=== PATIENT | female | born 1960 | race Caucasian/White ===

== ENCOUNTER 2017-11-06 09:00 | Outpatient (RCR) | payer MEDICARE, MEDICAID, SELFPAY ==
[2017-10-30 10:01] VITALS: BP 150/87; PULSE 99; RESP 16; TEMP 36.3; BMI 53.2
--- NOTE | 2017-10-30 12:18 | HP.PCM_ITS ---
(1) Radiation adverse effect Status: Chronic Current Visit: Yes Code(s): T66.XXXA - Radiation sickness, unspecified, initial encounter (2) Endometrial cancer Status: Chronic Current Visit: No Code(s): C54.1 - Malignant neoplasm of endometrium (3) Lung cancer Status: Chronic Current Visit: Yes Code(s): C34.90 - Malignant neoplasm of unspecified part of unspecified bronchus or lung (4) Neuropathy involving both lower extremities Status: Chronic Current Visit: Yes Code(s): G57.93 - Unspecified mononeuropathy of bilateral lower limbs (5) Ulcer of left lower extremity Status: Acute Current Visit: Yes Code(s): L97.929 - Non-pressure chronic ulcer of unspecified part of left lower leg with unspecified severity (6) Infection, wound status post trauma Status: Acute Current Visit: Yes Code(s): T14.8XXA - Other injury of unspecified body region, initial encounter; L08.9 - Local infection of the skin and subcutaneous tissue, unspecified (7) Cellulitis of left lower leg Status: Acute Current Visit: Yes Code(s): L03.116 - Cellulitis of left lower limb History of Present Illness Date of Service: 10/30/17 Chief Complaint: Follow-up on a ulcer from September 30 left lower leg History of Wound: 57-year-old white female that was working with a microwave and jumped a boiling bag on her left lower leg and developed a burn that blistered to a second-degree. Patient suffers from neuropathy from radiation treatments for her ovarian lung cancer 5 years ago. Patient has no feeling in her lower extremities therefore did not realize it was getting worse. Patient finally went to the emergency room where they placed her on antibiotics. She has also been seen by her primary care doctor and they also put her on a second antibiotic. Patient is currently finished Bactrim and now cephalexin. The ulcer is on the left lateral lower leg with a not a healthy scab and cellulitis around the leg she denies pain. Past Medical History Past Medical History: Chronic Problems Benign hypertension (Chronic) Calculus of kidney and ureter (Chronic) Chronic osteoarthritis (Chronic) Complicated migraine (Chronic) Constipation (Chronic) Hyperlipidemia (Chronic) Morbid obesity (Chronic) Psoriasis (Chronic) Endometrial cancer (Chronic) Esophageal reflux (Chronic) Radiation adverse effect (Chronic) Lung cancer (Chronic) Neuropathy involving both lower extremities (Chronic) Past Medical History: Radiation adverse reaction from ovarian and lung cancer stage IV and remission infection in a left lower leg ulcer, burn to her left lower leg Allergies/Adverse Reactions: Allergies Iodinated Contrast- Oral and IV Dye [CONTRASTS] Adverse Reaction (Verified 10/25 15:29) Swelling SEASONAL ALLERGIES Adverse Reaction (Uncoded 10/25/17 15:29) Other Home Medications: Ambulatory Orders Medication Instructions Recorded Dicyclomine HCl 10 mg PO 4X/DAY 02/10/15 Gabapentin [Neurontin] 600 mg PO BID 02/10/15 Hydrochlorothiazide [Hctz] 10 mg PO DAILY 02/10/15 Albuterol Inhaler [Ventolin Hfa 1 - 2 puff INHALATION Q4H PRN PRN 12/24/16 (SP)] Apremilast [Otezla] 30 mg PO BID 12/24/16 Gabapentin [Neurontin] 900 mg PO QHS 03/25/17 Cephalexin [Keflex] 500 mg PO TID 10/25/17 Sulfamethoxazole/Trimethoprim 1 each PO BID 10/25/17 [Bactrim Ds Tablet] Smoking Status: Former smoker Review of Systems Constitutional: Denies: Chills, Fever Eyes: Denies: Blurred vision, Drainage, Pain HEENT: Denies: Difficulty Hearing, Difficulty Swallowing, Sore Throat, Visual Changes Cardiovascular: Denies: Chest Pain, Palpitations, Syncope Respiratory: Denies: Cough, Shortness of Breath Gastrointestinal: Denies: Abdominal Pain, Nausea, Vomiting Genitourinary: Denies: Dysuria, Frequency Musculoskeletal: Denies: Joint Pain, Muscle pain Skin: Reports: - - Left lower leg ulcer. Denies: Jaundice, Rash Neurological: Denies: Balance problems, Change in Speech, Difficulty swallowing , Focal weakness Psychiatric: Denies: Anxiety, Depression Endocrine: Denies: Change in Body Habitus Hematologic/ Lymphatic: Denies: Adenopathy - Physical Exam Vital Signs Temp Pulse Resp BP 97.3 F L 99 16 150/87 H 10/30/17 10:01 10/30/17 10:01 10/30/17 10:01 10/30/17 10:01 General: Oriented x3, Cooperative, Well developed HEENT: Atraumatic, PERRLA Oral: Moist Mucosa Neck: Supple, No JVD Lungs: Clear to auscultation, Normal air movement Cardiovascular: Regular rate, Regular Rhythm Abdomen: Bowel Sounds Present, Soft, Non Tender, No Hepato-splenomegaly, Obese Extremities: No clubbing, No edema, - - Ulcer left lower leg scabbed Wound Measurements and Assessment - Nurse 1 - General Ulcer Measurement Start: 10/30/17 09:54 Freq: Status: Active Protocol: Activity Type Activity Date Activity User E-Sign Co-Sign Detail Recorded Client Recorded Date Recorded By Document 10/30/17 10:01 BM [id number] 10/30/17 10:22 BMF 10/30/17 10:01 Wound Center Nurse 1 [Ulcer Assessment Protocol: PATRICIA.WD.LOC] #1- LT LOWER REED -Combined with other wound No -Current Size (cm) - Length 1.6 -Current Size (cm) - Width 1.2 -Current Size (cm) - Depth 0.1 -Total Square Cm 1.92 -Date of Last Picture (Recall this 10/30/17 field) -Photo Taken Yes -Epithelialization None Present -Tunneling No -Undermining/Tunneling No -Exudate Amt None Present (0 %) -Wound Margin Distinct, Outline Attached -Granulation Amt None Present (0 %) -Slough/Fibrin Yes -Necrosis Amt Large (67-100%) -Necrotic Tissue Type Eschar -Structure Exposed N/A -Texture (Mady-wound Skin Appearance) Scarring -Moisture (Mady-wound Skin Appearance Assessed ) -Color (Mady-wound Skin Appearance) Erythema -Temperature (Mady-wound Skin No Abnormality Appearance) (Pt Warm) -Tenderness on Palpation (Mady-wound No Skin Appearance) -Ulcer Cleansing Rinsed/ Irrigated with Saline -Foul Odor after Cleansing No -Anesthetic Used 5% Lidocaine Gel [Edema Assessment] -Lower Limb Edema Present Yes -Right Calf (cm) 57 -Right Ankle (cm) 32.6 -Left Calf (cm) 57.5 -Left Ankle (cm) 35.4 - Nurse 2 - General Ulcer CM Notes Start: 10/30/17 09:54 Freq: Status: Active Protocol: Activity Type Activity Date Activity User E-Sign Co-Sign Detail Recorded Client Recorded Date Recorded By Document 10/30/17 10:37 MW [id number] 10/30/17 10:47 MW 10/30/17 10:37 Wound Center Nurse 2 [Procedure/Treatment] #1- LT LOWER REED -Time 10:39 -Correct Patient Yes -Correct Side, Site, Position Yes -Correct Procedure Yes -Procedure Performed Yes -Type of Procedure Debridement -Clinical Debridement Subcutaneous -Post Debridement Size (cm) - Length 1.5 -Post Debridement Size (cm) - Width 1.0 -Post Debridement Size (cm) - Depth 0.2 -Total Square Cm 1.50 -Wound/Ulcer Outcome Not Healed -Ulcer Cleansing Rinsed/ Irrigated with Saline -Foul Odor after Cleansing No -Cetacaine [place] No -Bleeding Controlled with Pressure -Treatment Response Procedure Tolerated Well [See Physician Procedure note for Specifics] Pain Scale: 0-10 Numeric [Pain] -Is Patient Pain Free? Yes Musculoskeletal: No Tenderness to Palpation of Joints or Extremities Lymphatic: No Cervical, Supraclavicular, or Inguinal Adenopathy Neurological: Cranial nerves II-XII grossly intact, Neuro grossly intact Psych/Mental Status: Normal Affect, Appropriate, Alert and oriented to time, place, person, mood and affect Debridement Note Post-Debridement Measurements/Treatment WC - Nurse 2 - General Ulcer CM Notes Start: 10/30/17 09:54 Freq: Status: Active Protocol: Activity Type Activity Date Activity User E-Sign Co-Sign Detail Recorded Client Recorded Date Recorded By Document 10/30/17 10:37 MW [id number] 10/30/17 10:47 MW 10/30/17 10:37 Wound Center Nurse 2 #1- LT LOWER REED -Time 10:39 -Correct Patient Yes -Correct Side, Site, Position Yes -Correct Procedure Yes -Procedure Performed Yes -Type of Procedure Debridement -Clinical Debridement Subcutaneous -Post Debridement Size (cm) - Length 1.5 -Post Debridement Size (cm) - Width 1.0 -Post Debridement Size (cm) - Depth 0.2 -Total Square Cm 1.50 -Wound/Ulcer Outcome Not Healed -Ulcer Cleansing Rinsed/ Irrigated with Saline -Foul Odor after Cleansing No -Cetacaine [place] No -Bleeding Controlled with Pressure -Treatment Response Procedure Tolerated Well Pain Scale: 0-10 Numeric Is Patient Pain Free? Yes Wound debrided: Left lower leg ulcer Type of Debridement: Excisional debridement Anesthesia Used: 5% Lidocaine Gel Depth: Down to and including healthy tissue, in the subcutaneous layer, to muscle Percentage of wound debrided: 100 Instrument Used: 5mm curette, #15 blade Tissue Removed: Slough and devitalized tissue Severity: Limited To Skin Breakdown Amount of bleeding with debridement: Mild Bleeding Controlled with: Compression and gauze Patient tolerated procedure well Assessment/Plan Active Problems Radiation adverse effect (Chronic) Lung cancer (Chronic) Neuropathy involving both lower extremities (Chronic) Ulcer of left lower extremity (Acute) Infection, wound status post trauma (Acute) Cellulitis of left lower leg (Acute) Assessment: Left lobe lower leg ulcer infected. Nonhealing ulcer from a burn September 30. Radiation yin to her lower abdomen and back. Cellulitis of the left lower leg. Edema bilateral lower legs. Neuropathy bilateral lower legs Plan: Wash the left lower leg with Hibiclens. Apply Promogran moistened Adaptic dressings every other day. Tubigrip's bilateral lower legs. Follow-up in 1 week
[2017-11-06 08:52] VITALS: BP 152/83; PULSE 88; RESP 18; TEMP 35.5; BMI 53.2
--- NOTE | 2017-11-06 09:38 | PN.PCM_ITS ---
(1) Radiation adverse effect Status: Chronic Current Visit: Yes Code(s): T66.XXXA - Radiation sickness, unspecified, initial encounter (2) Endometrial cancer Status: Chronic Current Visit: Yes Code(s): C54.1 - Malignant neoplasm of endometrium (3) Lung cancer Status: Chronic Current Visit: Yes Code(s): C34.90 - Malignant neoplasm of unspecified part of unspecified bronchus or lung (4) Neuropathy involving both lower extremities Status: Chronic Current Visit: Yes Code(s): G57.93 - Unspecified mononeuropathy of bilateral lower limbs (5) Ulcer of left lower extremity Status: Acute Current Visit: Yes Code(s): L97.929 - Non-pressure chronic ulcer of unspecified part of left lower leg with unspecified severity (6) Infection, wound status post trauma Status: Acute Current Visit: Yes Code(s): T14.8XXA - Other injury of unspecified body region, initial encounter; L08.9 - Local infection of the skin and subcutaneous tissue, unspecified (7) Cellulitis of left lower leg Status: Acute Current Visit: Yes Code(s): L03.116 - Cellulitis of left lower limb (8) Lymphedema Status: Acute Current Visit: Yes Code(s): I89.0 - Lymphedema, not elsewhere classified Type of Wound Date of Service: 11/06/17 Chief Complaint: Follow-up on a ulcer from September 30 left lower leg History of Wound: 57-year-old white female that was working with a microwave and dropped a boiling bag on her left lower leg and developed a burn that blistered to a second-degree. Patient suffers from neuropathy from radiation treatments for her ovarian lung cancer 5 years ago. Patient has no feeling in her lower extremities therefore did not realize it was getting worse. Patient finally went to the emergency room where they placed her on antibiotics. She has also been seen by her primary care doctor and they also put her on a second antibiotic. Patient is currently finished Bactrim and now cephalexin. The ulcer is on the left lateral lower leg with a not a healthy scab and cellulitis around the leg she denies pain. Progress of Wound: Today the ulcer is slightly smaller the swelling is better she is down 3 inches in her legs just with the Tubigrip's. She states she still complains of a severe deep pain inside her leg. There is a red line circumferential to the ulcer. I think I will start her on metronidazole to see if there was an culture that just did not catch her anaerobes. Cultures did come back negative for any bacteria. We will also in discussion with her swelling she complains that her right thigh overlaps her knee even at sitting and did not know that I she had lymphedema so we will get arterial brachial studies and suggest may be done wraps for her to send her down and she would be a good candidate for the automatic compression machine for herself to. - Physical Exam Vital Signs Temp Pulse Resp BP 95.9 F L 88 18 152/83 H 11/06/17 08:52 11/06/17 08:52 11/06/17 08:52 11/06/17 08:52 General: Oriented x3, Cooperative, Well developed HEENT: Atraumatic, PERRLA Oral: Moist Mucosa Neck: Supple, No JVD Lungs: Clear to auscultation, Normal air movement Cardiovascular: Regular rate, Regular Rhythm Abdomen: Bowel Sounds Present, Soft, Non Tender, No Hepato-splenomegaly Extremities: No clubbing, No edema, - - Left lower leg ulcer Skin: Ulcer/ Wound Wound Measurements and Assessment - Nurse 1 - General Ulcer Measurement Start: 10/30/17 09:54 Freq: Status: Active Protocol: Activity Type Activity Date Activity User E-Sign Co-Sign Detail Recorded Client Recorded Date Recorded By Document 11/06/17 08:52 [id number] 11/06/17 09:01 DL 11/06/17 08:52 Wound Center Nurse 1 [Ulcer Assessment Protocol: PATRICIA.WD.LOC] #1- LT LOWER REED -Current Size (cm) - Length 1.3 -Current Size (cm) - Width 0.4 -Current Size (cm) - Depth 0.1 -Total Square Cm 0.52 -Photo Taken No -Exudate Amt Small (1-33%) -Exudate Type Serosanguineous -Wound Margin Distinct, Outline Attached -Granulation Amt Medium (34-66%) -Granulation Quality Red -Necrosis Amt Medium (34-66%) -Necrotic Tissue Type Adherent Slough -Structure Exposed N/A -Texture (Mady-wound Skin Appearance) Scarring -Moisture (Mady-wound Skin Appearance Dry/Scaly ) -Color (Mady-wound Skin Appearance) No Abnormality Rubor -Temperature (Mady-wound Skin No Abnormality Appearance) (Pt Warm) -Ulcer Cleansing Rinsed/ Irrigated with Saline -Foul Odor after Cleansing No -Anesthetic Used 4% Lidocaine Solution [Edema Assessment] -Right Calf (cm) 54.2 -Right Ankle (cm) 32.2 -Right Foot (cm) 54.5 -Left Calf (cm) 3 WC - Nurse 2 - General Ulcer CM Notes Start: 10/30/17 09:54 Freq: Status: Active Protocol: Activity Type Activity Date Activity User E-Sign Co-Sign Detail Recorded Client Recorded Date Recorded By Document 11/06/17 09:18 MW [id number] 11/06/17 09:21 MW 11/06/17 09:18 Wound Center Nurse 2 [Procedure/Treatment] #1- LT LOWER REED -Time 09:19 -Correct Patient Yes -Correct Side, Site, Position Yes -Correct Procedure Yes -Procedure Performed Yes -Type of Procedure Debridement -Clinical Debridement Subcutaneous -Post Debridement Size (cm) - Length 1.5 -Post Debridement Size (cm) - Width 0.5 -Post Debridement Size (cm) - Depth 0.1 -Total Square Cm 0.75 -Wound/Ulcer Outcome Not Healed -Ulcer Cleansing Rinsed/ Irrigated with Saline -Foul Odor after Cleansing No -Bioengineered Tissue No -Cetacaine [place] No -Bleeding Controlled with Pressure -Treatment Response Procedure Tolerated Well [See Physician Procedure note for Specifics] Pain Scale: 0-10 Numeric [Pain] -Is Patient Pain Free? Yes Musculoskeletal: No Tenderness to Palpation of Joints or Extremities Lymphatic: No Cervical, Supraclavicular, or Inguinal Adenopathy Neurological: Cranial nerves II-XII grossly intact, Neuro grossly intact Psych/Mental Status: Normal Affect, Appropriate, Alert and oriented to time, place, person, mood and affect Debridement Note Post-Debridement Measurements/Treatment WC - Nurse 2 - General Ulcer CM Notes Start: 10/30/17 09:54 Freq: Status: Active Protocol: Activity Type Activity Date Activity User E-Sign Co-Sign Detail Recorded Client Recorded Date Recorded By Document 10/30/17 10:37 MW [id number] 10/30/17 10:47 MW Document 11/06/17 09:18 MW [id number] 11/06/17 09:21 MW 10/30/17 11/06/17 10:37 09:18 Wound Center Nurse 2 #1- LT LOWER REED -Time 10:39 09:19 -Correct Patient Yes Yes -Correct Side, Site, Position Yes Yes -Correct Procedure Yes Yes -Procedure Performed Yes Yes -Type of Procedure Debridement Debridement -Clinical Debridement Subcutaneous Subcutaneous -Post Debridement Size (cm) - Length 1.5 1.5 -Post Debridement Size (cm) - Width 1.0 0.5 -Post Debridement Size (cm) - Depth 0.2 0.1 -Total Square Cm 1.50 0.75 -Wound/Ulcer Outcome Not Healed Not Healed -Ulcer Cleansing Rinsed/ Rinsed/ Irrigated with Irrigated with Saline Saline -Foul Odor after Cleansing No No -Bioengineered Tissue No -Cetacaine [place] No No -Bleeding Controlled with Pressure Pressure -Treatment Response Procedure Procedure Tolerated Well Tolerated Well Pain Scale: 0-10 Numeric Is Patient Pain Free? Yes Yes Wound debrided: Left lower leg ulcer Type of Debridement: Excisional debridement Anesthesia Used: 5% Lidocaine Gel Depth: Down to and including healthy tissue, in the subcutaneous layer, to muscle Percentage of wound debrided: 100 Instrument Used: 5mm curette Tissue Removed: Devitalized tissue and slough Severity: Limited To Skin Breakdown Amount of bleeding with debridement: Mild Bleeding Controlled with: Compression and gauze Patient tolerated procedure well Assessment/Plan Active Problems Endometrial cancer (Chronic) Radiation adverse effect (Chronic) Lung cancer (Chronic) Neuropathy involving both lower extremities (Chronic) Ulcer of left lower extremity (Acute) Infection, wound status post trauma (Acute) Cellulitis of left lower leg (Acute) Lymphedema (Acute) Assessment: Left lobe lower leg ulcer infected. Nonhealing ulcer from a burn September 30. Radiation yin to her lower abdomen and back. Cellulitis of the left lower leg. Edema bilateral lower legs. Neuropathy bilateral lower legs Plan: Wash the left lower leg with Hibiclens. Apply Promogran moistened Adaptic dressings every other day. Tubigrip's bilateral lower legs. Follow-up in 1 week
== END 2017-11-11 23:59 ==
LOC: WC 09:00
PROVIDERS: Family Provider Internal Medicine; PCP Internal Medicine; Visit Provider Nurse Practitioner
DX: T66.XXXA Radiation sickness, unspecified, initial encounter (principal); C54.1 Malignant neoplasm of endometrium; C34.90 Malignant neoplasm of unspecified part of unspecified bronchus or lung; G57.93 Unspecified mononeuropathy of bilateral lower limbs; L03.116 Cellulitis of left lower limb; I89.0 Lymphedema, not elsewhere classified; L97.821 Non-pressure chronic ulcer of other part of left lower leg limited to breakdown of skin; R60.0 Localized edema
CPT/HCPCS: 11042; 87070; 87075; 87205; 99203; G0463

== ENCOUNTER 2017-11-27 09:00 | Outpatient (RCR) | payer MEDICARE, BC, MEDICAID, SELFPAY ==
[2017-11-06 08:52] VITALS: BP 152/83
[2017-11-12 01:14] VITALS: PULSE 88; RESP 18; TEMP 35.5
[2017-11-13 09:08] VITALS: BP 142/82; PULSE 68; RESP 18; TEMP 36.3; BMI 53.2
--- NOTE | 2017-11-13 11:36 | PN.PCM_ITS ---
(1) Cellulitis of left lower leg Status: Acute Current Visit: Yes Code(s): L03.116 - Cellulitis of left lower limb (2) Infection, wound status post trauma Status: Acute Current Visit: Yes Code(s): T14.8XXA - Other injury of unspecified body region, initial encounter; L08.9 - Local infection of the skin and subcutaneous tissue, unspecified (3) Lymphedema Status: Chronic Current Visit: Yes Code(s): I89.0 - Lymphedema, not elsewhere classified (4) Ulcer of left lower extremity Status: Acute Current Visit: Yes Code(s): L97.929 - Non-pressure chronic ulcer of unspecified part of left lower leg with unspecified severity Type of Wound Date of Service: 11/13/17 Chief Complaint: Follow-up on a ulcer from September 30 left lower leg History of Wound: 57-year-old white female that was working with a microwave and dropped a boiling bag on her left lower leg and developed a burn that blistered to a second-degree. Patient suffers from neuropathy from radiation treatments for her ovarian lung cancer 5 years ago. Patient has no feeling in her lower extremities therefore did not realize it was getting worse. Patient finally went to the emergency room where they placed her on antibiotics. She has also been seen by her primary care doctor and they also put her on a second antibiotic. Patient is currently finished Bactrim and now cephalexin. The ulcer is on the left lateral lower leg with a not a healthy scab and cellulitis around the leg she denies pain. Progress of Wound: Today the ulcer is slightly smaller the swelling is better she is down 3 inches in her legs just with the Tubigrip's. She states the pain in her left lower leg has been better since being on the metronidazole. Cultures came back negative for any growth of anaerobes and her leg. There is a red line circumferential to the ulcer that is disappearing. Cultures did come back negative for any bacteria. We will also in discussion with her swelling she complains that her right thigh overlaps her knee even at sitting and did not know that I she had lymphedema so we will get arterial brachial studies and suggest may be done wraps for her to send her down and she would be a good candidate for the automatic compression machine for herself to. - Physical Exam Vital Signs Temp Pulse Resp BP 97.3 F L 68 18 142/82 H 11/13/17 09:08 11/13/17 09:08 11/13/17 09:08 11/13/17 09:08 General: Oriented x3, Cooperative, Well developed HEENT: Atraumatic, PERRLA Oral: Moist Mucosa Neck: Supple, No JVD Lungs: Clear to auscultation, Normal air movement Cardiovascular: Regular rate, Regular Rhythm Abdomen: Bowel Sounds Present, Soft, Non Tender, No Hepato-splenomegaly Extremities: No clubbing, No edema, - - Left lower leg Skin: Ulcer/ Wound Wound Measurements and Assessment - Nurse 1 - General Ulcer Measurement Start: 11/13/17 08:49 Freq: Status: Active Protocol: Activity Type Activity Date Activity User E-Sign Co-Sign Detail Recorded Client Recorded Date Recorded By Document 11/13/17 09:08 DV [id number] 11/13/17 09:11 DV 11/13/17 09:08 Wound Center Nurse 1 [Ulcer Assessment Protocol: WC.WD.LOC] #1- LT LOWER REED -Combined with other wound No -Current Size (cm) - Length 1.1 -Current Size (cm) - Width 0.5 -Current Size (cm) - Depth 0.1 -Total Square Cm 0.55 -Photo Taken No -Epithelialization Small 1-33% -Tunneling No -Undermining/Tunneling No -Circular Undermining No -Exudate Amt Small (1-33%) -Exudate Type Serosanguineous -Wound Margin Distinct, Outline Attached -Granulation Amt None Present (0 %) -Granulation Quality N/A -Slough/Fibrin Yes -Necrosis Amt Large (67-100%) -Necrotic Tissue Type Adherent Slough -Structure Exposed None/Limited to Skin Breakdown -Texture (Mady-wound Skin Appearance) Assessed Scarring -Moisture (Mady-wound Skin Appearance No Abnormality ) Assessed -Color (Mady-wound Skin Appearance) Assessed Mottled -Temperature (Mady-wound Skin No Abnormality Appearance) (Pt Warm) -Tenderness on Palpation (Mady-wound No Skin Appearance) -Ulcer Cleansing Rinsed/ Irrigated with Saline -Foul Odor after Cleansing No -Anesthetic Used 4% Lidocaine Solution [Edema Assessment] -Lower Limb Edema Present Yes -Left Calf (cm) 54.0 -Left Ankle (cm) 33.8 - Nurse 2 - General Ulcer CM Notes Start: 11/13/17 08:49 Freq: Status: Active Protocol: Activity Type Activity Date Activity User E-Sign Co-Sign Detail Recorded Client Recorded Date Recorded By Document 11/13/17 10:07 MW [id number] 11/13/17 10:08 MW 11/13/17 10:07 Wound Center Nurse 2 [Procedure/Treatment] #1- LT LOWER REED -Time 10:07 -Correct Patient Yes -Correct Side, Site, Position Yes -Correct Procedure Yes -Procedure Performed Yes -Type of Procedure Debridement -Clinical Debridement Subcutaneous -Post Debridement Size (cm) - Length 1.4 -Post Debridement Size (cm) - Width 0.4 -Post Debridement Size (cm) - Depth 0.1 -Total Square Cm 0.56 -Wound/Ulcer Outcome Not Healed -Ulcer Cleansing Rinsed/ Irrigated with Saline -Foul Odor after Cleansing No -Bioengineered Tissue No -Cetacaine [place] No -Bleeding Controlled with Pressure -Treatment Response Procedure Tolerated Well [See Physician Procedure note for Specifics] Pain Scale: 0-10 Numeric [Pain] -Is Patient Pain Free? Yes Musculoskeletal: No Tenderness to Palpation of Joints or Extremities Lymphatic: No Cervical, Supraclavicular, or Inguinal Adenopathy Neurological: Cranial nerves II-XII grossly intact, Neuro grossly intact Psych/Mental Status: Normal Affect, Appropriate, Alert and oriented to time, place, person, mood and affect Debridement Note Post-Debridement Measurements/Treatment WC - Nurse 2 - General Ulcer CM Notes Start: 11/13/17 08:49 Freq: Status: Active Protocol: Activity Type Activity Date Activity User E-Sign Co-Sign Detail Recorded Client Recorded Date Recorded By Document 11/13/17 10:07 MW [id number] 11/13/17 10:08 MW 11/13/17 10:07 Wound Center Nurse 2 #1- LT LOWER REED -Time 10:07 -Correct Patient Yes -Correct Side, Site, Position Yes -Correct Procedure Yes -Procedure Performed Yes -Type of Procedure Debridement -Clinical Debridement Subcutaneous -Post Debridement Size (cm) - Length 1.4 -Post Debridement Size (cm) - Width 0.4 -Post Debridement Size (cm) - Depth 0.1 -Total Square Cm 0.56 -Wound/Ulcer Outcome Not Healed -Ulcer Cleansing Rinsed/ Irrigated with Saline -Foul Odor after Cleansing No -Bioengineered Tissue No -Cetacaine [place] No -Bleeding Controlled with Pressure -Treatment Response Procedure Tolerated Well Pain Scale: 0-10 Numeric Is Patient Pain Free? Yes Wound debrided: Lower leg ulcer Type of Debridement: Excisional debridement Anesthesia Used: 5% Lidocaine Gel Depth: Down to and including healthy tissue, in the subcutaneous layer Instrument Used: 3mm curette Tissue Removed: Vitalized tissue and fibrin Severity: Limited To Skin Breakdown Amount of bleeding with debridement: Mild Bleeding Controlled with: Compression and gauze Patient tolerated procedure well Assessment/Plan Active Problems Ulcer of left lower extremity (Acute) Infection, wound status post trauma (Acute) Cellulitis of left lower leg (Acute) Lymphedema (Chronic) Assessment: Left lobe lower leg ulcer infected. Nonhealing ulcer from a burn September 30. Radiation yin to her lower abdomen and back. Cellulitis of the left lower leg. Edema bilateral lower legs. Neuropathy bilateral lower legs Plan: Wash the left lower leg with Hibiclens. Apply Promogran moistened Adaptic dressings every other day. Tubigrip's bilateral lower legs. Follow-up in 1 week
--- NOTE | 2017-11-17 08:43 | VDLE_ITS ---
Reason For Study: lymphedema RIGHT LEFT CFV is compressible, spontaneous, phasic, CFV is compressible, spontaneous, phasic, competent and demonstrates normal competent, and demonstrates normal augmentation. augmentation. FV is compressible, spontaneous, phasic, FV is compressible, spontaneous, phasic, competent and demonstrates normal competent and demonstrates normal augmentation. augmentation. POP V is compressible, spontaneous, phasic, POP V is compressible, spontaneous, phasic, competent and demonstrates normal competent and demonstrates normal augmentation. augmentation. T/P Trunk is compressible. T/P Trunk is compressible. PTV is compressible. PTV is compressible. RT PerV is compressible. LT PerV is compressible. S-F Junction is competent. S-F Junction is competent. GSV is incompetent throughout for greater GSV is incompetent throughout for greater than .5 seconds. GSV measures .529 x .520 than .5 seconds. GSV measures .622 x .621 cm. cm. ASV in the upper thigh is incompetent for SSV is incompetent for greater than .5 greater than .5 seconds. ASV measures .312 seconds. SSV measures .340 x .348 cm. x .327 cm. SSV is incompetent for greater than .5 seconds. SSV measures .530 x .543 cm. Procedure Exam performed in department. The exam was diagnostic. Interpretation Summary Deep veins of the lower extremities are bilaterally patent and compressible segmentally. There is no evidence of deep vein thrombosis on either side. Valvular competence appears intact within the proximal deep venous systems bilaterally. The greater saphenous veins appear bilaterally patent and compressible segmentally. Sapheno-femoral junctions are bilaterally competent . Segmental valvular incompetence is noted within the greater saphenous veins bilaterally. Small saphenous veins are patent and incompetent bilaterally. The right acessory saphenous vein in the upper thigh is incompetent. Ordering Physician: ORLANDO, OMAR Performed By: Merritt Hernandez RVT
--- NOTE | 2017-11-19 13:35 | LEAS ---
Arterial Study - Arterial Study Arterial Study: This is a 57-year-old female with a history of peripheral arterial occlusive disease. She is brought to the noninvasive vascular laboratory at this time for the purpose of bilateral noninvasive lower extremity arterial assessment. Doppler signal assessment was used to evaluate the pulses at ankle level bilaterally. The posterior tibial and dorsalis pedis pulses were triphasic bilaterally. Segmental limb pressures were obtained bilaterally. The right ankle pressure, as determined by posterior tibial pulse, was measured at 174 mmHg. The right ankle pressure, as determined by dorsalis pedis pulse, was measured at 154 mmHg. The right digital pressure was measured at 145 mm of the. The left ankle pressure, as determined by posterior tibial pulse, was measured at 159 mmHg. The left ankle pressure, as determined by dorsalis pedis pulse, was measured at 166 mmHg. The left digital pressure was measured at 116 mmHg. Pulse-volume recordings were obtained bilaterally and segmentally. Waveform amplitudes appeared to be satisfactory at all levels bilaterally, including low thigh, calf, ankle, and digital levels. Resting ankle-brachial indices were calculated bilaterally. The resting right ankle-brachial index was calculated to be 1.25. The resting left ankle-brachial index was calculated to be 1.19. Digital-brachial indices were calculated bilaterally. The right digital-brachial index was calculated to be 1.04. The left digital-brachial index was calculated to be 0.83. Impression: Based upon the findings of this resting noninvasive lower external study, there is no evidence of significant atherosclerotic peripheral arterial occlusive disease in the lower extremities bilaterally. Triphasic waveforms are noted at ankle level bilaterally. Resting ankle-brachial indices were bilaterally normal. Digital-brachial indices were also normal bilaterally. In summary, this represents a normal resting noninvasive lower extremity arterial study bilaterally.
--- NOTE | 2017-11-19 13:38 | LEAS_ITS ---
Arterial Study - Arterial Study Arterial Study: This is a 57-year-old female with a history of peripheral arterial occlusive disease. She is brought to the noninvasive vascular laboratory at this time for the purpose of bilateral noninvasive lower extremity arterial assessment. Doppler signal assessment was used to evaluate the pulses at ankle level bilaterally. The posterior tibial and dorsalis pedis pulses were triphasic bilaterally. Segmental limb pressures were obtained bilaterally. The right ankle pressure, as determined by posterior tibial pulse, was measured at 174 mmHg. The right ankle pressure, as determined by dorsalis pedis pulse, was measured at 154 mmHg. The right digital pressure was measured at 145 mm of the. The left ankle pressure, as determined by posterior tibial pulse, was measured at 159 mmHg. The left ankle pressure, as determined by dorsalis pedis pulse, was measured at 166 mmHg. The left digital pressure was measured at 116 mmHg. Pulse-volume recordings were obtained bilaterally and segmentally. Waveform amplitudes appeared to be satisfactory at all levels bilaterally, including low thigh, calf, ankle, and digital levels. Resting ankle-brachial indices were calculated bilaterally. The resting right ankle-brachial index was calculated to be 1.25. The resting left ankle- brachial index was calculated to be 1.19. Digital-brachial indices were calculated bilaterally. The right digital- brachial index was calculated to be 1.04. The left digital-brachial index was calculated to be 0.83. Impression: Based upon the findings of this resting noninvasive lower external study, there is no evidence of significant atherosclerotic peripheral arterial occlusive disease in the lower extremities bilaterally. Triphasic waveforms are noted at ankle level bilaterally. Resting ankle-brachial indices were bilaterally normal. Digital-brachial indices were also normal bilaterally. In summary, this represents a normal resting noninvasive lower extremity arterial study bilaterally.
[2017-11-20 08:55] VITALS: BP 141/88; PULSE 87; RESP 18; TEMP 35.8; BMI 53.2
--- NOTE | 2017-11-20 12:54 | PCM.WC.PN ---
(1) Cellulitis of left lower leg Status: Acute Current Visit: Yes Code(s): L03.116 - Cellulitis of left lower limb (2) Infection, wound status post trauma Status: Acute Current Visit: Yes Code(s): T14.8XXA - Other injury of unspecified body region, initial encounter; L08.9 - Local infection of the skin and subcutaneous tissue, unspecified (3) Lymphedema Status: Chronic Current Visit: Yes Code(s): I89.0 - Lymphedema, not elsewhere classified (4) Ulcer of left lower extremity Status: Acute Current Visit: Yes Code(s): L97.929 - Non-pressure chronic ulcer of unspecified part of left lower leg with unspecified severity (5) Peripheral vascular occlusive disease Status: Acute Current Visit: Yes Code(s): I73.9 - Peripheral vascular disease, unspecified Type of Wound Date of Service: 11/20/17 Chief Complaint: Follow-up on a ulcer from September 30 left lower leg History of Wound: 57-year-old white female that was working with a microwave and dropped a boiling bag on her left lower leg and developed a burn that blistered to a second-degree. Patient suffers from neuropathy from radiation treatments for her ovarian lung cancer 5 years ago. Patient has no feeling in her lower extremities therefore did not realize it was getting worse. Patient finally went to the emergency room where they placed her on antibiotics. She has also been seen by her primary care doctor and they also put her on a second antibiotic. Patient is currently finished Bactrim and now cephalexin. The ulcer is on the left lateral lower leg with a not a healthy scab and cellulitis around the leg she denies pain. Progress of Wound: Today the ulcer is slightly smaller the swelling is better she is down 3 inches in her legs just with the Tubigrip's. She states the pain in her left lower leg has been better since being on the metronidazole. Cultures came back negative for any growth of anaerobes and her leg. There is a red line circumferential to the ulcer that is disappearing. Cultures did come back negative for any bacteria. We will also in discussion with her swelling she complains that her right thigh overlaps her knee even at sitting and did not know that I she had lymphedema the brachial studies show definite occlusions and her venous bilateral lower legs and right upper thigh. Patient will will be referred to Dr. Benedict. - Physical Exam Vital Signs Temp Pulse Resp BP 96.5 F L 87 18 141/88 H 11/20/17 08:55 11/20/17 08:55 11/20/17 08:55 11/20/17 08:55 General: Oriented x3, Cooperative, Well developed HEENT: Atraumatic, PERRLA Oral: Moist Mucosa Neck: Supple, No JVD Lungs: Clear to auscultation, Normal air movement Cardiovascular: Regular rate, Regular Rhythm Abdomen: Bowel Sounds Present, Soft, Non Tender, No Hepato-splenomegaly Extremities: No clubbing, No edema, - - Anterior lower leg ulcer Wound Measurements and Assessment WC - Nurse 1 - General Ulcer Measurement Start: 11/13/17 08:49 Freq: Status: Active Protocol: Activity Type Activity Date Activity User E-Sign Co-Sign Detail Recorded Client Recorded Date Recorded By Document 11/20/17 08:55 TM [id number] 11/20/17 08:57 TM 11/20/17 08:55 Wound Center Nurse 1 [Ulcer Assessment Protocol: PATRICIA.WD.LOC] #1- LT LOWER REED -Combined with other wound No -Current Size (cm) - Length 1.1 -Current Size (cm) - Width 0.7 -Current Size (cm) - Depth 0.1 -Total Square Cm 0.77 -Photo Taken No -Epithelialization Small 1-33% -Tunneling No -Undermining/Tunneling No -Circular Undermining No -Classification - Thickness Full Thickness without Exposed Support Structure -Exudate Amt Small (1-33%) -Exudate Type Sanguineous -Granulation Amt Medium (34-66%) -Granulation Quality [place] -Slough/Fibrin Yes -Necrosis Amt Medium (34-66%) -Necrotic Tissue Type Adherent Slough -Structure Exposed Fascia Fat Layer Exposed -Texture (Mady-wound Skin Appearance) Localized Edema -Moisture (Mady-wound Skin Appearance Dry/Scaly ) -Color (Mady-wound Skin Appearance) Erythema Hemosiderin Staining -Temperature (Mady-wound Skin No Abnormality Appearance) (Pt Warm) -Tenderness on Palpation (Mady-wound No Skin Appearance) -Ulcer Cleansing Rinsed/ Irrigated with Saline -Foul Odor after Cleansing No -Anesthetic Used 4% Lidocaine Solution [Edema Assessment] -Lower Limb Edema Present Yes -Left Calf (cm) 56.0 -Left Ankle (cm) 33.5 - Nurse 2 - General Ulcer CM Notes Start: 11/13/17 08:49 Freq: Status: Active Protocol: Activity Type Activity Date Activity User E-Sign Co-Sign Detail Recorded Client Recorded Date Recorded By Document 11/20/17 09:46 MW [id number] 11/20/17 09:47 MW 11/20/17 09:46 Wound Center Nurse 2 [Procedure/Treatment] #1- LT LOWER REED -Time 09:46 -Correct Patient Yes -Correct Side, Site, Position Yes -Correct Procedure Yes -Procedure Performed Yes -Type of Procedure Debridement -Clinical Debridement Subcutaneous -Post Debridement Size (cm) - Length 1.3 -Post Debridement Size (cm) - Width 0.4 -Post Debridement Size (cm) - Depth 0.1 -Total Square Cm 0.52 -Wound/Ulcer Outcome Not Healed -Ulcer Cleansing Rinsed/ Irrigated with Saline -Foul Odor after Cleansing No -Bioengineered Tissue No -Bleeding Controlled with Pressure -Treatment Response Procedure Tolerated Well [See Physician Procedure note for Specifics] Pain Scale: 0-10 Numeric [Pain] -Is Patient Pain Free? Yes Musculoskeletal: No Tenderness to Palpation of Joints or Extremities Lymphatic: No Cervical, Supraclavicular, or Inguinal Adenopathy Neurological: Cranial nerves II-XII grossly intact, Neuro grossly intact Psych/Mental Status: Normal Affect, Appropriate, Alert and oriented to time, place, person, mood and affect Debridement Note Post-Debridement Measurements/Treatment - Nurse 2 - General Ulcer CM Notes Start: 11/13/17 08:49 Freq: Status: Active Protocol: Activity Type Activity Date Activity User E-Sign Co-Sign Detail Recorded Client Recorded Date Recorded By Document 11/13/17 10:07 MW [id number] 11/13/17 10:08 MW Document 11/20/17 09:46 MW [id number] 11/20/17 09:47 MW 11/13/17 11/20/17 10:07 09:46 Wound Center Nurse 2 #1- LT LOWER REED -Time 10:07 09:46 -Correct Patient Yes Yes -Correct Side, Site, Position Yes Yes -Correct Procedure Yes Yes -Procedure Performed Yes Yes -Type of Procedure Debridement Debridement -Clinical Debridement Subcutaneous Subcutaneous -Post Debridement Size (cm) - Length 1.4 1.3 -Post Debridement Size (cm) - Width 0.4 0.4 -Post Debridement Size (cm) - Depth 0.1 0.1 -Total Square Cm 0.56 0.52 -Wound/Ulcer Outcome Not Healed Not Healed -Ulcer Cleansing Rinsed/ Rinsed/ Irrigated with Irrigated with Saline Saline -Foul Odor after Cleansing No No -Bioengineered Tissue No No -Cetacaine [place] No -Bleeding Controlled with Pressure Pressure -Treatment Response Procedure Procedure Tolerated Well Tolerated Well Pain Scale: 0-10 Numeric Is Patient Pain Free? Yes Yes Wound debrided: Anterior lower leg ulcer Type of Debridement: Excisional debridement Anesthesia Used: 5% Lidocaine Gel Depth: Down to and including healthy tissue, in the subcutaneous layer Percentage of wound debrided: 100 Instrument Used: 3mm curette Tissue Removed: Fibrin Amount of bleeding with debridement: None Bleeding Controlled with: Pressure Patient tolerated procedure well Assessment/Plan Active Problems Peripheral vascular occlusive disease (Acute) Lymphedema (Chronic) Cellulitis of left lower leg (Acute) Infection, wound status post trauma (Acute) Ulcer of left lower extremity (Acute) Assessment: Left lobe lower leg ulcer infected. Nonhealing ulcer from a burn September 30. Radiation yin to her lower abdomen and back. Cellulitis of the left lower leg. Edema bilateral lower legs peripheral vascular occlusive disease. Neuropathy bilateral lower legs Plan: Wash the left lower leg with Hibiclens. Apply Promogran moistened Adaptic dressings every other day. Tubigrip's bilateral lower legs. Follow-up in 1 week
[2017-11-27 09:03] VITALS: BP 146/86; PULSE 116; RESP 18; TEMP 36.4; BMI 53.2
--- NOTE | 2017-11-27 09:46 | PCM.WC.PN ---
(1) Cellulitis of left lower leg Status: Acute Current Visit: Yes Code(s): L03.116 - Cellulitis of left lower limb (2) Infection, wound status post trauma Status: Acute Current Visit: Yes Code(s): T14.8XXA - Other injury of unspecified body region, initial encounter; L08.9 - Local infection of the skin and subcutaneous tissue, unspecified (3) Lymphedema Status: Chronic Current Visit: Yes Code(s): I89.0 - Lymphedema, not elsewhere classified (4) Ulcer of left lower extremity Status: Acute Current Visit: Yes Code(s): L97.929 - Non-pressure chronic ulcer of unspecified part of left lower leg with unspecified severity (5) Peripheral vascular occlusive disease Status: Acute Current Visit: Yes Code(s): I73.9 - Peripheral vascular disease, unspecified Type of Wound Date of Service: 11/27/17 Chief Complaint: Follow-up on a ulcer from September 30 left lower leg History of Wound: 57-year-old white female that was working with a microwave and dropped a boiling bag on her left lower leg and developed a burn that blistered to a second-degree. Patient suffers from neuropathy from radiation treatments for her ovarian lung cancer 5 years ago. Patient has no feeling in her lower extremities therefore did not realize it was getting worse. Patient finally went to the emergency room where they placed her on antibiotics. She has also been seen by her primary care doctor and they also put her on a second antibiotic. Patient is currently finished Bactrim and now cephalexin. The ulcer is on the left lateral lower leg with a not a healthy scab and cellulitis around the leg she denies pain. Progress of Wound: Today the ulcer is completely resolved and healed patient will be discharged from the wound center. She has an appointment with Dr. Benedict for next week for her peripheral vascular occlusive disease. Tolerating double layer Tubigrip's and is to continue this until seen by Dr. Benedict. The suggested she could apply on top of the Tubigrip's Alexx wraps starting with a 4 inch on the foot to ankle and then a 6 inch from the ankle to the below the knee area. Patient is to keep the ulcer covered with a gauze dressing for 1 more week and then she may stop - Physical Exam Vital Signs Temp Pulse Resp BP 97.6 F L 116 H 18 146/86 H 02/16/18 09:03 11/27/17 09:03 11/27/17 09:03 11/27/17 09:03 General: Oriented x3, Cooperative, Well developed HEENT: Atraumatic, PERRLA Oral: Moist Mucosa Neck: Supple, No JVD Lungs: Clear to auscultation, Normal air movement Cardiovascular: Regular rate, Regular Rhythm Abdomen: Bowel Sounds Present, Soft, Non Tender, No Hepato-splenomegaly Extremities: No clubbing, No edema, - - Lower leg ulcer Wound Measurements and Assessment - Nurse 1 - General Ulcer Measurement Start: 11/13/17 08:49 Freq: Status: Active Protocol: Activity Type Activity Date Activity User E-Sign Co-Sign Detail Recorded Client Recorded Date Recorded By Document 11/27/17 09:03 [id number] 11/27/17 09:05 TM 11/27/17 09:03 Wound Center Nurse 1 [Ulcer Assessment Protocol: WC.WD.LOC] #1- LT LOWER REED -Combined with other wound No -Current Size (cm) - Length 1.0 -Current Size (cm) - Width 0.2 -Current Size (cm) - Depth 0.1 -Total Square Cm 0.20 -Date of Last Picture (Recall this 11/27/17 field) -Photo Taken Yes -Epithelialization Small 1-33% -Tunneling No -Undermining/Tunneling No -Circular Undermining No -Classification - Thickness Full Thickness without Exposed Support Structure -Exudate Amt Small (1-33%) -Exudate Type Serosanguineous -Wound Margin Distinct, Outline Attached -Granulation Amt Large (67-100%) -Granulation Quality Red -Slough/Fibrin Yes -Necrosis Amt Small (1-33%) -Necrotic Tissue Type Adherent Slough -Structure Exposed Fascia Fat Layer Exposed -Texture (Mady-wound Skin Appearance) Localized Edema Scarring -Moisture (Mady-wound Skin Appearance No Abnormality ) -Color (Mady-wound Skin Appearance) Erythema Hemosiderin Staining -Temperature (Mady-wound Skin No Abnormality Appearance) (Pt Warm) -Tenderness on Palpation (Mady-wound No Skin Appearance) -Ulcer Cleansing Rinsed/ Irrigated with Saline -Foul Odor after Cleansing No -Anesthetic Used 5% Lidocaine Gel [Edema Assessment] -Lower Limb Edema Present Yes -Left Calf (cm) 55.5 -Left Ankle (cm) 35.0 - Nurse 2 - General Ulcer CM Notes Start: 11/13/17 08:49 Freq: Status: Active Protocol: Activity Type Activity Date Activity User E-Sign Co-Sign Detail Recorded Client Recorded Date Recorded By Document 11/27/17 09:23 MW [id number] 11/27/17 09:24 MW 11/27/17 09:23 Wound Center Nurse 2 [Procedure/Treatment] #1- LT LOWER REED -Time 09:23 -Correct Patient Yes -Correct Side, Site, Position Yes -Correct Procedure Yes -Procedure Performed No -Post Debridement Size (cm) - Length 0 -Post Debridement Size (cm) - Width 0 -Post Debridement Size (cm) - Depth 0 -Total Square Cm 0 -Wound/Ulcer Outcome Healed- Epithelialized -Ulcer Cleansing Rinsed/ Irrigated with Saline -Foul Odor after Cleansing No -Bioengineered Tissue No -Bleeding Controlled with NA -Treatment Response Procedure Tolerated Well [See Physician Procedure note for Specifics] Pain Scale: 0-10 Numeric [Pain] -Is Patient Pain Free? Yes Musculoskeletal: No Tenderness to Palpation of Joints or Extremities Lymphatic: No Cervical, Supraclavicular, or Inguinal Adenopathy Neurological: Cranial nerves II-XII grossly intact, Neuro grossly intact Psych/Mental Status: Normal Affect, Appropriate Debridement Note Post-Debridement Measurements/Treatment - Nurse 2 - General Ulcer CM Notes Start: 11/13/17 08:49 Freq: Status: Active Protocol: Activity Type Activity Date Activity User E-Sign Co-Sign Detail Recorded Client Recorded Date Recorded By Document 11/13/17 10:07 MW [id number] 11/13/17 10:08 MW Document 11/20/17 09:46 MW [id number] 11/20/17 09:47 MW Document 11/27/17 09:23 MW [id number] 11/27/17 09:24 MW 11/13/17 11/20/17 11/27/17 10:07 09:46 09:23 Wound Center Nurse 2 #1- LT LOWER REED -Time 10:07 09:46 09:23 -Correct Patient Yes Yes Yes -Correct Side, Site, Position Yes Yes Yes -Correct Procedure Yes Yes Yes -Procedure Performed Yes Yes No -Type of Procedure Debridement Debridement -Clinical Debridement Subcutaneous Subcutaneous -Post Debridement Size (cm) - Length 1.4 1.3 0 -Post Debridement Size (cm) - Width 0.4 0.4 0 -Post Debridement Size (cm) - Depth 0.1 0.1 0 -Total Square Cm 0.56 0.52 0 -Wound/Ulcer Outcome Not Healed Not Healed Healed- Epithelialized -Ulcer Cleansing Rinsed/ Rinsed/ Rinsed/ Irrigated with Irrigated with Irrigated with Saline Saline Saline -Foul Odor after Cleansing No No No -Bioengineered Tissue No No No -Cetacaine [place] No -Bleeding Controlled with Pressure Pressure NA -Treatment Response Procedure Procedure Procedure Tolerated Well Tolerated Well Tolerated Well Pain Scale: 0-10 Numeric Is Patient Pain Free? Yes Yes Yes No debridement was completed today Assessment/Plan Active Problems Peripheral vascular occlusive disease (Acute) Lymphedema (Chronic) Cellulitis of left lower leg (Acute) Infection, wound status post trauma (Acute) Ulcer of left lower extremity (Acute) Assessment: Left lobe lower leg ulcer infected. Nonhealing ulcer from a burn September 30. Radiation yin to her lower abdomen and back. Cellulitis of the left lower leg. Edema bilateral lower legs peripheral vascular occlusive disease. Neuropathy bilateral lower legs Plan: Charge from the wound center. Follow-up with Dr. Benedict for next week. Then you the compression and use of Tubigrip's bilateral lower legs
--- NOTE | 2017-11-27 09:49 | PN.PCM_ITS ---
(1) Cellulitis of left lower leg Status: Acute Current Visit: Yes Code(s): L03.116 - Cellulitis of left lower limb (2) Infection, wound status post trauma Status: Acute Current Visit: Yes Code(s): T14.8XXA - Other injury of unspecified body region, initial encounter; L08.9 - Local infection of the skin and subcutaneous tissue, unspecified (3) Lymphedema Status: Chronic Current Visit: Yes Code(s): I89.0 - Lymphedema, not elsewhere classified (4) Ulcer of left lower extremity Status: Acute Current Visit: Yes Code(s): L97.929 - Non-pressure chronic ulcer of unspecified part of left lower leg with unspecified severity (5) Peripheral vascular occlusive disease Status: Acute Current Visit: Yes Code(s): I73.9 - Peripheral vascular disease, unspecified Type of Wound Date of Service: 11/27/17 Chief Complaint: Follow-up on a ulcer from September 30 left lower leg History of Wound: 57-year-old white female that was working with a microwave and dropped a boiling bag on her left lower leg and developed a burn that blistered to a second-degree. Patient suffers from neuropathy from radiation treatments for her ovarian lung cancer 5 years ago. Patient has no feeling in her lower extremities therefore did not realize it was getting worse. Patient finally went to the emergency room where they placed her on antibiotics. She has also been seen by her primary care doctor and they also put her on a second antibiotic. Patient is currently finished Bactrim and now cephalexin. The ulcer is on the left lateral lower leg with a not a healthy scab and cellulitis around the leg she denies pain. Progress of Wound: Today the ulcer is completely resolved and healed patient will be discharged from the wound center. She has an appointment with Dr. Benedict for next week for her peripheral vascular occlusive disease. Tolerating double layer Tubigrip's and is to continue this until seen by Dr. Benedict. The suggested she could apply on top of the Tubigrip's Alexx wraps starting with a 4 inch on the foot to ankle and then a 6 inch from the ankle to the below the knee area. Patient is to keep the ulcer covered with a gauze dressing for 1 more week and then she may stop - Physical Exam Vital Signs Temp Pulse Resp BP 97.6 F L 116 H 18 146/86 H 02/16/18 09:03 11/27/17 09:03 11/27/17 09:03 11/27/17 09:03 General: Oriented x3, Cooperative, Well developed HEENT: Atraumatic, PERRLA Oral: Moist Mucosa Neck: Supple, No JVD Lungs: Clear to auscultation, Normal air movement Cardiovascular: Regular rate, Regular Rhythm Abdomen: Bowel Sounds Present, Soft, Non Tender, No Hepato-splenomegaly Extremities: No clubbing, No edema, - - Lower leg ulcer Wound Measurements and Assessment - Nurse 1 - General Ulcer Measurement Start: 11/13/17 08:49 Freq: Status: Active Protocol: Activity Type Activity Date Activity User E-Sign Co-Sign Detail Recorded Client Recorded Date Recorded By Document 11/27/17 09:03 [id number] 11/27/17 09:05 TM 11/27/17 09:03 Wound Center Nurse 1 [Ulcer Assessment Protocol: WC.WD.LOC] #1- LT LOWER REED -Combined with other wound No -Current Size (cm) - Length 1.0 -Current Size (cm) - Width 0.2 -Current Size (cm) - Depth 0.1 -Total Square Cm 0.20 -Date of Last Picture (Recall this 11/27/17 field) -Photo Taken Yes -Epithelialization Small 1-33% -Tunneling No -Undermining/Tunneling No -Circular Undermining No -Classification - Thickness Full Thickness without Exposed Support Structure -Exudate Amt Small (1-33%) -Exudate Type Serosanguineous -Wound Margin Distinct, Outline Attached -Granulation Amt Large (67-100%) -Granulation Quality Red -Slough/Fibrin Yes -Necrosis Amt Small (1-33%) -Necrotic Tissue Type Adherent Slough -Structure Exposed Fascia Fat Layer Exposed -Texture (Mady-wound Skin Appearance) Localized Edema Scarring -Moisture (Mady-wound Skin Appearance No Abnormality ) -Color (Mady-wound Skin Appearance) Erythema Hemosiderin Staining -Temperature (Mady-wound Skin No Abnormality Appearance) (Pt Warm) -Tenderness on Palpation (Mady-wound No Skin Appearance) -Ulcer Cleansing Rinsed/ Irrigated with Saline -Foul Odor after Cleansing No -Anesthetic Used 5% Lidocaine Gel [Edema Assessment] -Lower Limb Edema Present Yes -Left Calf (cm) 55.5 -Left Ankle (cm) 35.0 - Nurse 2 - General Ulcer CM Notes Start: 11/13/17 08:49 Freq: Status: Active Protocol: Activity Type Activity Date Activity User E-Sign Co-Sign Detail Recorded Client Recorded Date Recorded By Document 11/27/17 09:23 MW [id number] 11/27/17 09:24 MW 11/27/17 09:23 Wound Center Nurse 2 [Procedure/Treatment] #1- LT LOWER REED -Time 09:23 -Correct Patient Yes -Correct Side, Site, Position Yes -Correct Procedure Yes -Procedure Performed No -Post Debridement Size (cm) - Length 0 -Post Debridement Size (cm) - Width 0 -Post Debridement Size (cm) - Depth 0 -Total Square Cm 0 -Wound/Ulcer Outcome Healed- Epithelialized -Ulcer Cleansing Rinsed/ Irrigated with Saline -Foul Odor after Cleansing No -Bioengineered Tissue No -Bleeding Controlled with NA -Treatment Response Procedure Tolerated Well [See Physician Procedure note for Specifics] Pain Scale: 0-10 Numeric [Pain] -Is Patient Pain Free? Yes Musculoskeletal: No Tenderness to Palpation of Joints or Extremities Lymphatic: No Cervical, Supraclavicular, or Inguinal Adenopathy Neurological: Cranial nerves II-XII grossly intact, Neuro grossly intact Psych/Mental Status: Normal Affect, Appropriate Debridement Note Post-Debridement Measurements/Treatment - Nurse 2 - General Ulcer CM Notes Start: 11/13/17 08:49 Freq: Status: Active Protocol: Activity Type Activity Date Activity User E-Sign Co-Sign Detail Recorded Client Recorded Date Recorded By Document 11/13/17 10:07 MW [id number] 11/13/17 10:08 MW Document 11/20/17 09:46 MW [id number] 11/20/17 09:47 MW Document 11/27/17 09:23 MW [id number] 11/27/17 09:24 MW 11/13/17 11/20/17 11/27/17 10:07 09:46 09:23 Wound Center Nurse 2 #1- LT LOWER REED -Time 10:07 09:46 09:23 -Correct Patient Yes Yes Yes -Correct Side, Site, Position Yes Yes Yes -Correct Procedure Yes Yes Yes -Procedure Performed Yes Yes No -Type of Procedure Debridement Debridement -Clinical Debridement Subcutaneous Subcutaneous -Post Debridement Size (cm) - Length 1.4 1.3 0 -Post Debridement Size (cm) - Width 0.4 0.4 0 -Post Debridement Size (cm) - Depth 0.1 0.1 0 -Total Square Cm 0.56 0.52 0 -Wound/Ulcer Outcome Not Healed Not Healed Healed- Epithelialized -Ulcer Cleansing Rinsed/ Rinsed/ Rinsed/ Irrigated with Irrigated with Irrigated with Saline Saline Saline -Foul Odor after Cleansing No No No -Bioengineered Tissue No No No -Cetacaine [place] No -Bleeding Controlled with Pressure Pressure NA -Treatment Response Procedure Procedure Procedure Tolerated Well Tolerated Well Tolerated Well Pain Scale: 0-10 Numeric Is Patient Pain Free? Yes Yes Yes No debridement was completed today Assessment/Plan Active Problems Peripheral vascular occlusive disease (Acute) Lymphedema (Chronic) Cellulitis of left lower leg (Acute) Infection, wound status post trauma (Acute) Ulcer of left lower extremity (Acute) Assessment: Left lobe lower leg ulcer infected. Nonhealing ulcer from a burn September 30. Radiation yin to her lower abdomen and back. Cellulitis of the left lower leg. Edema bilateral lower legs peripheral vascular occlusive disease. Neuropathy bilateral lower legs Plan: Charge from the wound center. Follow-up with Dr. Benedict for next week. Then you the compression and use of Tubigrip's bilateral lower legs
== END 2017-12-09 23:59 ==
LOC: WC 09:00
PROVIDERS: Family Provider Internal Medicine; PCP Internal Medicine; Visit Provider Nurse Practitioner
DX: L03.116 Cellulitis of left lower limb (principal); I89.0 Lymphedema, not elsewhere classified; L97.821 Non-pressure chronic ulcer of other part of left lower leg limited to breakdown of skin; Z85.43 Personal history of malignant neoplasm of ovary; Z85.118 Personal history of other malignant neoplasm of bronchus and lung; M79.89 Other specified soft tissue disorders; G62.9 Polyneuropathy, unspecified; I73.9 Peripheral vascular disease, unspecified; R60.0 Localized edema
CPT/HCPCS: 11042; 93923; 93970; 99213; G0463

== ENCOUNTER → 2020-04-24 17:51 | Outpatient (CLI) | payer MEDICARE, MEDICAID, SELFPAY | PROVIDERS: PCP Internal Medicine; Referring Provider Nurse Practitioner; Visit Provider Nurse Practitioner | DX: Z20.828 Contact with and (suspected) exposure to other viral communicable diseases (principal) | CPT/HCPCS: 87635; G2023; U0003 ==

== ENCOUNTER → 2020-07-27 09:20 | Outpatient (CLI) | payer MEDICARE, MEDICAID, SELFPAY | PROVIDERS: PCP Internal Medicine; Referring Provider Family Medicine; Visit Provider Family Medicine | DX: Z20.828 Contact with and (suspected) exposure to other viral communicable diseases (principal) | CPT/HCPCS: 87635; C9803; U0003 ==

== ENCOUNTER 2021-06-07 10:45 | Inpatient (IN) | payer MEDICARE, MEDICAID, SELFPAY ==
[2021-06-07] VITALS (8 sets, daily range): BP systolic 79–119; BP diastolic 43–69; PULSE 66–87; RESP 13–18; TEMP 36.5–36.8; O2SAT 95–99; BMI 60.1; BMI 60.8
--- NOTE | 2021-06-07 11:04 | EKG12_ITS ---
Test Reason : HYPOTENTION Blood Pressure : / mmHG Vent. Rate : 078 BPM Atrial Rate : 078 BPM P-R Int : 180 ms QRS Dur : 100 ms QT Int : 400 ms P-R-T Axes : 023 -03 001 degrees QTc Int : 456 ms Normal sinus rhythm Normal ECG Confirmed by ALICE TENA MD ([id number]), editor at large ALEXSANDRA TELLEZ ([id number]) on 06/10/2021 12:46:24 PM Referred By: ERA Confirmed By:ALICE TENA MD
--- NOTE | 2021-06-07 11:13 | EDS_ITS ---
HPI History of Present Illness Chief Complaint: Hypotension Detail of Chief Complaint: Lightheaded dizzy due to low blood pressure. Informant: patient Onset/Context/Timing Onset: Days Context: Gradual Onset Timing: Continuous Current Severity: Mild Maximum Severity: Mild Narrative Narrative: 61-year-old female has upcoming scheduled gastric sleeve next Thursday. She has been on liquid diet around 2 weeks. Last 4 to 5 days she has felt lightheaded and dizziness. She started taking her blood pressure several days ago and noticed her blood pressures been 60-80 systolically. She stopped taking her blood pressure medication. Normally when she is on her normal medications her blood pressure runs between 1 20-1 40 on blood pressure medication. Today she actually fell because she was lightheaded. She denies any recent illness she denies any vomiting or diarrhea. She has had some mild nausea. She denies any fever or chills. No dysuria. No chest pain or shortness of breath. No abdominal pain. She had a preop appointment today they noticed her pressure was low and sent her over to the emergency department. Prior similar symptoms: No Recent Illness/Hospitalization: No PFSH PFS Medical History (Updated 06/07/21 @ 13:[address] Omero Nelson MD) Anxiety CPAP (continuous positive airway pressure) dependence Hypertension Kidney stones Non-smoker Osteoarthritis Sleep apnea Home Medications Dicyclomine Hcl 10 mg PO 4X/DAY 02/10/15 [History Last Taken Unknown] gabapentin 600 mg PO BID 02/10/15 [History Last Taken Unknown] hydrochlorothiazide 10 mg PO DAILY 02/10/15 [History Last Taken Unknown] albuterol sulfate [Ventolin Hfa (SP)] 1 - 2 puff INHALATION Q4H PRN PRN 12/24/16 [History Last Taken Unknown] gabapentin 900 mg PO QHS 03/25/17 [History Last Taken Unknown] amlodipine 5 mg PO DAILY 06/07/21 [History Last Taken Unknown] fluticasone furoate-vilanterol [Breo Ellipta] 1 inh INHALATION DAILY 06/07/21 [History Last Taken Unknown] lisinopril 40 mg PO DAILY 06/07/21 [History Last Taken Unknown] lorazepam 1 mg PO BID PRN PRN 06/07/21 [History Last Taken Unknown] montelukast [Singulair] 10 mg PO DAILY 06/07/21 [History Last Taken Unknown] Allergy/AdvReac Type Severity Reaction Status Date / Time Iodinated Contrast Media AdvReac Swelling Verified 06/07/21 10:48 [CONTRASTS] SEASONAL ALLERGIES AdvReac Other Uncoded 06/07/21 10:48 Surgical History (Updated 06/07/21 @ 11:25 by Ross Marin) History of rhinoplasty History of tonsillectomy and adenoidectomy Social History Smoking Status: Former smoker ROS ROS ED ROS Narrative Mild nausea. Review of Systems ROS Unobtainable: Denies due to encephalopathy Constitutional Constitutional ED: Denies chills or fever(s) Eyes Eyes: Denies change in vision ENT ENT ED: Denies ear pain or sore throat Cardiovascular Cardiovascular: Denies chest pain Respiratory/Chest Respiratory/Chest: Denies cough or dyspnea Gastrointestinal Gastrointestinal: Reports nausea; Denies abdominal pain, constipation, diarrhea, melena or vomiting Genitourinary Genitourinary ED: Denies dysuria Musculoskeletal Musculoskeletal: Denies myalgias Integumentary Denies rash Neurologic Neurologic: Denies headache(s) Psychiatric Psychiatric: Denies depression Endocrine Endocrinology: Denies polyuria Allergic/Immunologic Allergic/Immunologic ED: Denies urticaria EXAM Physical Exam Narrative Exam Narrative: 61-year-old female no acute distress. Lying in bed she looks comfortable she is awake alert and her blood pressure 79/61. Pulse ox 95%. Temperature 97.7. She does not look septic or toxic. She is in no distress. H EENT exam unremarkable. Moist with membranes. Neck nontender no lymphadenopathy no JVD. Lungs clear to auscultation bilaterally. Heart regular rate and rhythm rate in the 80s no murmur. Chest wall nontender. Abdomen obese but soft nontender nondistended normal bowel sounds no peritoneal signs. Moving all 4 extremities. Calves are nontender without edema or cords. Neurologically she is awake and alert with no focal motor deficits. Const Vital Signs: 06/07/21 10:45 06/07/21 11:19 06/07/21 11:38 Temperature 97.7 F L Temperature Source Temporal Pulse Rate 87 78 Respiratory Rate 16 13 Respiratory Effort Normal Respiratory Pattern Normal Blood Pressure 79/61 L 108/58 L Blood Pressure Mean 67 74 Pulse Ox 95 Oxygen Delivery Method Room Air Room Air 06/07/21 13:15 Temperature Temperature Source Pulse Rate 66 Respiratory Rate 18 Respiratory Effort Respiratory Pattern Blood Pressure 105/69 Blood Pressure Mean 81 Pulse Ox 99 Oxygen Delivery Method Room Air Positive well nourished, well developed and obese; Negative for cachectic, contractures or unkempt General Appearance ED: well developed and NAD; Negative for unkempt, cachectic, contractures, cyanotic or diaphoretic Nutritional Appearance: obese; Negative for cachectic HEENT Reports moist mucous membranes Negative for trauma Eyes PERRL and EOMs intact bilaterally Neck no lymphadenopathy, supple and no JVD General: Negative for tenderness Chest Wall inspection of chest normal and palpation of chest normal Resp normal respiratory effort and clear to auscultation bilaterally Auscultation: Negative for rales, rhonchi or wheezes Cardio regular rate, regular rhythm, S1 normal heart sound, S2 normal heart sound and no murmurs Rate: Negative for bradycardia or tachycardic GI normal to inspection, nondistended, normoactive bowel sounds, non-tender, non- distended and no masses Inspection: Negative for abdominal distention Auscultation: normoactive bowel sounds Palpation: soft; Negative for tender, guarding or rebound tenderness present Back/Spine no CVA tenderness General Back: Negative for CVA tenderness Cervical Spine: Negative for cervical spine tenderness Extremity normal to inspection General Extremety ED: Negative for edema or tenderness General Extremity: Negative for edema Neuro oriented x3 and CN's II-XII intact bilaterally Sensorium / Orientation: alert; Negative for orientation impaired, lethargic or stuporous Motor Exam: strength 5/5 throughout Psych mental status grossly normal Appearance: Negative for unkempt Attitude: No agitated Mood & Affect: Negative for depressed, anxious or tearful Skin no rashes or lesions noted, no wounds and skin turgor normal MDM MDM MDM Narrative Medical decision making narrative: 61-year-old female no acute distress has been dealing with hypotension the last several days. Stopped her chronic hypertensi on medication. Her exam is benign but her pressures running in the 70s systolic. She will be worked up for this for multiple possibilities such as infection even though clinically she does not seem infected and she is afebrile, dehydration but she clinically does not look dehydrated she has been drinking fluids and been on all liquid diet for an upcoming surgery. Versus cardiac etiologies versus other. Repeat exam patient doing well at 1:40 PM. Current blood pressure is 100/65. She is received a liter of fluid. We went over her test results. Due to her acute kidney injury and dehydration and hypotension will admit to hospitalist on page. Lab Data Attestation: I reviewed the patient's lab results. Lab results narrative: CBC shows a white count 9. Hemoglobin 15. Electrolytes show sodium 128 which is low anion gap at 9 BUN of 73 creatinine 2.97 consistent with dehydration and renal insufficiency. Lactic acid elevated 2.1 and troponin is 9. Labs: Laboratory Results - last 24 hr 06/07/21 06/07/21 06/07/21 11:34 11:34 11:34 WBC 9.9 RBC 5.11 Hgb 15.1 H Hct 46.1 MCV 90.2 MCH 29.5 MCHC 32.8 RDW Std Deviation 47.2 H RDW Coeff of Becky 14.2 Plt Count 347 MPV 10.4 Immature Gran % (Auto) 0.600 Neut % (Auto) 72.2 H Lymph % (Auto) 14.4 L Dunn % (Auto) 11.1 H Eos % (Auto) 1.2 Baso % (Auto) 0.5 Absolute Neuts (auto) 7.1 Absolute Lymphs (auto) 1.42 Nucleated RBC % 0 Sodium 128 L Potassium 4.0 Chloride 92 L Carbon Dioxide 27.0 Anion Gap 9 BUN 73 H Creatinine 2.97 H Estim Creat Clear Calc 18.13 Est GFR (MDRD) Af Amer 21 L Est GFR (MDRD) Non-Af 17 L BUN/Creatinine Ratio 24.6 H Glucose 127 H Lactic Acid 2.1 H* Calcium 11.5 H Troponin I High Sens 9 Radiography Chest X-Ray - ED: 1 View, Read by ED Physician, Read by Radiologist, Normal, Heart, Lungs, Mediastinum, Bony Structures, No Acute Disease and Chronic Changes Diagnostic Testing: Radiology Impression Chest X-Ray 06/07/21 11:25 IMPRESSION: No acute abnormality is seen. Electronically Signed: Adam Alexander MD at 11:58 EDT , Service support , Portable single chest x-ray read both by myself and radiology shows no acute process. Rhythm Strip Rhythm Strip: Sinus Rhythm Rate: 78 Ectopy: None EKG Initial EKG: Attestation: I personally reviewed and interpreted this EKG as follows: Interpretation: Sinus Rhythm and No Acute Injury Pattern Comments: Normal sinus rhythm rate of 78 no acute abnormality. Discharge Plan Triage Chief Complaint: Hypotension ED Provider: Omero Nelson Dx/Rx/DC Orders Clinical Impression: Acute hypotension, Acute kidney injury, Acute dehydration, Acute hyponatremia Prescriptions: No Action gabapentin 300 MG capsule 600 mg PO BID RF: 0 hydrochlorothiazide 25 MG tablet 10 mg PO DAILY RF: 0 Dicyclomine Hcl 10 MG capsule 10 mg PO 4X/DAY RF: 0 albuterol sulfate [Ventolin HFA] 1 INHALER inhaler 1 - 2 puff inhalation Q4H PRN PRN (Reason: Wheezing) RF: 0 gabapentin 300 MG capsule 900 mg PO QHS RF: 0 amlodipine 5 mg tablet 5 mg PO DAILY RF: 0 montelukast [Singulair] 10 mg Tablet 10 mg PO DAILY RF: 0 lorazepam 1 mg tablet 1 mg PO BID PRN PRN (Reason: Anxiety) RF: 0 lisinopril 40 mg tablet 40 mg PO DAILY RF: 0 Breo Ellipta 200-25 mcg/dose blister with device 1 inh INHALATION DAILY RF: 0 Primary Care Provider: Adam Powell Referrals: Adam Powell MD [Primary Care Provider] - Disposition Disposition: Acute Care Hospital [facility]
--- NOTE | 2021-06-07 11:25 | RAD_ITS ---
STUDY: X-RAY CHEST REASON FOR EXAM: Female, 61 years old. Chest pain TECHNIQUE: Single AP portable view of the chest. COMPARISON: None. FINDINGS: EKG electrodes are seen. The lungs are clear and expanded. There is no demonstrated pleural abnormality. Normal size heart. Normal mediastinum and ja. Normal visualized pulmonary arteries. There is atherosclerotic calcification of the aortic arch with tortuosity. Normal visualized thoracic spine. Normal visualized ribs, clavicles, and shoulders. There is no demonstrated abnormality of the visualized soft tissue structures of the upper abdomen. RAD/Chest 1 View (Portable) IMPRESSION: No acute abnormality is seen. Electronically Signed: Adam Alexander MD at 11:58 EDT , Service support ,
[2021-06-07] MEDS: 0.9% Normal Saline 1,000 ML 1000 ML IV (11:41)
[2021-06-07 11:48] LABS: Absolute Lymphocyte Count 1.42 X10^3/uL (0.83-4.51); Absolute Neutrophil Count 7.1 X10^3/uL (2.0-7.7); Basophil# 0.05 X10^3/uL; Basophil% 0.5 % (0-1); Eosinophil# 0.12 X10^3/uL; Eosinophils% 1.2 % (0-5); Hematocrit 46.1 % (37-47); Hemoglobin 15.1 g/dL (12.0-15.0); Lymphocyte # 1.42 X10^3/ul (0.83-4.51); Lymphocyte % 14.4 % (19-41); Mean Corp Hgb Conc 32.8 g/dL (32-36); Mean Corpuscular Hgb 29.5 pg (27.0-32.0); Mean Corpuscular Volume 90.2 fL (81-99); Mean Platelet Vol. 10.4 fl (6.2-12.0); Monocyte% 11.1 % (0-10); NRBC Flagged by Analyzer 0 % (0-5); Neutrophil # 7.13 X10^3/uL (2.7-7.7); Neutrophil % 72.2 % (47-70); Platelet Count 347 K/mm3 (150-450); RBC Distribution Width CV 14.2 % (11.6-14.6); RBC Distribution Width SD 47.2 fl (35.1-43.9); Red Blood Count 5.11 M/mm3 (4.2-5.4); White Blood Count 9.9 K/mm3 (4.4-11.0)
[2021-06-07 12:07] LABS: Anion Gap 9 (5-15); BUN 73 mg/dL (7-18); BUN/Creat Ratio 24.6 RATIO (10-20); Calcium,Total 11.5 mg/dL (8.5-10.1); Chloride 92 mmol/L (98-107); Creatinine, Serum 2.97 mg/dL (0.55-1.02); EST Glomerular Filtration Rate 17 mL/min (>60); Est Glom Filt Rate - Afr Amer 21 mL/min (>60); Estimated Creatinine Clearance 18.13 ml/min; Glucose 127 mg/dL (74-106); Sodium Level 128 mmol/L (136-145); Troponin-I HS 9 pg/mL (3.0-54.0)
[2021-06-07 12:16] LABS: Lactic Acid 2.1 mmol/L (0.4-1.9)
[2021-06-07 13:39] LABS: Mucous, Urine 0 SEEN /hpf (<or=2+)
[2021-06-07 13:41] LABS: Color, Urine Yellow (Yellow); Glucose, Dipstick Normal (Normal); Ketone-Dipstick Negative (Negative); Leukocyte Esterase-Dipstick 500 /ul (Negative); Nitrite-Dipstick Positive (Negative); Occult Blood-Urine 25 /ul (Negative); Protein-Dipstick 30 mg/dl (Negative); Urine Bilirubin Dipstick Negative (Negative); Urine Clarity Sl. Cloudy (Clear); Urine Urobilinogen Normal (Normal)
[2021-06-07 14:02] LABS: White Blood Cells >100 SEEN /hpf (0-5)
[2021-06-07 14:03] LABS: Bacteria 3+ /hpf (None Seen); Red Blood Cells-Urine 5-10 SEEN /hpf (0-5); Squamous Epithelial Cells - UA 50-100 SEEN /hpf (5-10)
[2021-06-07 15:42] LABS: Reflex Lactate? Y
[2021-06-07] MEDS: 0.9% Normal Saline 1,000 ML 999 ML IV ×3 (16:12→18:34)
--- NOTE | 2021-06-07 16:15 | PCM.HP.STD ---
Documented by User: Devi Mondragon NP, S[employer]OL SALVAGER-C 06/07/21 17:01 HPI - General General Date of Admission: 06/07/21 HPI Narrative GREG BENSON, is a 61 F who presents to the emergency room due to low blood pressure. Patient states her blood pressure has been low at home for the past 3 days and she has been lightheaded and last night had episode of near syncope. She is scheduled for gastric sleeve surgery on Thursday and followed up for preanesthesia testing today where she felt lightheaded and weak. Her blood pressure was noted to be significantly low and she was sent to the emergency room for further evaluation. Patient states she has been on a liquid diet for 2 weeks in preparation for surgery. She states she has been attempting to drink they recommended amount per day which is around 64 ounces however she states she typically drinks around 30 ounces of fluids per day. She denies chest pressure, shortness of breath. She does states she held her blood pressure medications the past few days without improvement in symptoms. She has a past medical history of hypertension, uterine cancer in remission, depression, anxiety, KATIA, morbid obesity. [facility] Medical History (Updated 06/07/21 @ 16:57 by Alexandra Espinal) Anxiety CPAP (continuous positive airway pressure) dependence Hypertension Kidney stones Non-smoker Osteoarthritis Osteomyelitis Sleep apnea Home Medications gabapentin 600 mg PO BID 02/10/15 [History Last Taken 06/07/21] albuterol sulfate [Ventolin Hfa (SP)] 1 - 2 puff INHALATION Q4H PRN PRN 12/24/16 [History Last Taken 06/06/21] gabapentin 900 mg PO QHS 03/25/17 [History Last Taken 06/06/21] amlodipine 5 mg PO DAILY 06/07/21 [History Last Taken 06/06/21] chlorthalidone 25 mg PO DAILY 06/07/21 [History Last Taken 06/06/21] dicyclomine 20 mg PO TID 06/07/21 [History Last Taken 06/06/21] duloxetine 30 mg PO QHS 06/07/21 [History Last Taken 06/06/21] fluticasone furoate-vilanterol [Breo Ellipta] 1 inh INHALATION DAILY 06/07/21 [History Last Taken 06/07/21] lisinopril 40 mg PO DAILY 06/07/21 [History Last Taken 06/06/21] lorazepam 1 mg PO BID PRN PRN 06/07/21 [History Last Taken 2 Days Ago ~06/05/21] montelukast [Singulair] 10 mg PO DAILY 06/07/21 [History Last Taken 06/06/21] nortriptyline 25 mg PO QHS 06/07/21 [History Last Taken 06/06/21] Allergy/AdvReac Type Severity Reaction Status Date / Time Iodinated Contrast Media AdvReac Swelling Verified 06/07/21 10:48 [CONTRASTS] SEASONAL ALLERGIES AdvReac Other Uncoded 06/07/21 10:48 Family History Father Heart disease Diabetes Mother Hypertension Surgical History (Updated 06/07/21 @ 17:01 by Devi Mondragon NP, S[employer]OL SALVAGER-C) H/O knee surgery History of carpal tunnel release of both wrists History of rhinoplasty History of tonsillectomy and adenoidectomy Social History Smoking Status: Former smoker alcohol intake: current alcohol intake frequency: holidays/special occasions only substance use type: does not use ROS Constitutional Constitutional: Denies change in weight, chills, fatigue, fever(s) or weakness Cardiovascular Cardiovascular: Reports lightheadedness and syncope; Denies chest pain, edema or palpitations Respiratory/Chest Respiratory/Chest: Denies cough, dyspnea, productive cough, shortness of breath at rest, shortness of breath with exertion or wheezing Gastrointestinal Gastrointestinal: Denies abdominal pain, constipation, diarrhea, nausea or vomiting Genitourinary Genitourinary: Denies burning urination, difficulty urinating, dysuria, hematuria, urinary frequency, urinary incontinence or urinary urgency Musculoskeletal Musculoskeletal: Denies back pain, joint pain or muscle weakness Integumentary Integumentary: Denies erythema, lesions, rash or wounds Neurologic Neurologic: Denies abnormal speech, confusion, dizziness, focal weakness, numbness, paresthesias, seizure-like activity or syncope Psychiatric Psychiatric: Denies anxiety or depression Hematologic/Lymphatic Hematologic/Lymphatic: Denies anemia, easy bleeding or easy bruising Allergic/Immunologic Allergic/Immunologic: Denies hives or asthma Vital Signs Vital Signs Vital Signs: 06/07/21 10:45 06/07/21 11:19 06/07/21 11:38 Temperature 97.7 F L Temperature Source Temporal Pulse Rate 87 78 Respiratory Rate 16 13 Respiratory Effort Normal Respiratory Pattern Normal Blood Pressure 79/61 L 108/58 L Blood Pressure Mean 67 74 Pulse Ox 95 Oxygen Delivery Method Room Air Room Air 06/07/21 13:15 06/07/21 15:53 Temperature 98 F Temperature Source Temporal Pulse Rate 66 75 Respiratory Rate 18 15 Respiratory Effort Respiratory Pattern Blood Pressure 105/69 104/57 L Blood Pressure Mean 81 72 Pulse Ox 99 98 Oxygen Delivery Method Room Air Room Air Weight Weight: 361 lb 8.929 oz Body Mass Index (BMI) 60.1 Physical Exam Const alert, oriented x3 and no apparent distress Orientation / Consciousness: awake, oriented to person, oriented to place and oriented to time Nutritional Appearance: obese HEENT normocephalic HEENT Narrative: Dry mucous membranes Eyes PERRL, EOMs intact bilaterally and conjunctivae normal Neck no lymphadenopathy Resp normal respiratory effort and clear to auscultation bilaterally Cardio regular rate, regular rhythm and no murmurs Peripheral Pulses: pulses 2+ throughout GI normal to inspection, nondistended, normoactive bowel sounds, non-tender and non-distended Extremity normal to inspection Skin no rashes or lesions noted Lesions: no lesions Rashes: no rashes Trauma: no lacerations or abrasions Neuro CN's II-XII intact bilaterally, no focal motor deficits, no sensory deficits noted and deep tendon reflexes 2+ bilaterally Psych mental status grossly normal and affect normal Results Lab / Micro Data Result Diagrams: 06/07/21 11:34 06/07/21 11:34 Labs: Laboratory Results - last 24 hr 06/07/21 11:34: WBC 9.9, RBC 5.11, Hgb 15.1 H, Hct 46.1, MCV 90.2, MCH 29.5, MCHC 32.8, RDW Std Deviation 47.2 H, RDW Coeff of Becky 14.2, Plt Count 347, MPV 10.4, Immature Gran % (Auto) 0.600, Neut % (Auto) 72.2 H, Lymph % (Auto) 14.4 L, Clare % (Auto) 11.1 H, Eos % (Auto) 1.2, Baso % (Auto) 0.5, Absolute Neuts (auto) 7.1, Absolute Lymphs (auto) 1.42, Nucleated RBC % 0 06/07/21 11:34: Sodium 128 L, Potassium 4.0, Chloride 92 L, Carbon Dioxide 27.0, Anion Gap 9, BUN 73 H, Creatinine 2.97 H, Estim Creat Clear Calc 18.13, Est GFR (MDRD) Af Amer 21 L, Est GFR (MDRD) Non-Af 17 L, BUN/Creatinine Ratio 24.6 H, Glucose 127 H, Calcium 11.5 H, Troponin I High Sens 9 06/07/21 11:34: Lactic Acid 2.1 H* 06/07/21 13:31: Urine Color Yellow, Urine Clarity Sl. Cloudy, Urine pH 5.0, Ur Specific [place] 1.010, Urine Protein 30 H, Urine Glucose (UA) Normal, Urine Ketones Negative, Urine Occult Blood 25 H, Urine Nitrite Positive H, Urine Bilirubin Negative, Urine Urobilinogen Normal, Ur Leukocyte Esterase 500 H, Urine RBC 5-10 SEEN, Urine WBC >100 SEEN, Ur Squamous Epith Cells 50-100 SEEN, Urine Bacteria 3+, Urine Mucus 0 SEEN Rhythm Strip Rhythm Strip: Sinus Rhythm Rate: 78 Ectopy: None Radiology Impression Chest X-Ray 06/07/21 11:25 IMPRESSION: No acute abnormality is seen. Electronically Signed: Adam Alexander MD at 11:58 EDT , Service support , Assessment & Plan Assessment/Plan (1) Acute kidney injury: (2) Acute hypotension: PLAN: 1. Acute kidney injury-IV fluids, trend BMP. Patient has been on liquid diet in preparation for upcoming surgery. Hold diuretic regimen. 2. Hypotension-suspect secondary to #1 combined with home antihypertensive regimen. Hold BP regimen. IV fluids as noted above. 3. Hypovolemic hyponatremia-IV fluids as noted above. Trend BMP. 4. Lactic acidosis-suspect secondary to dehydration. IV fluids. Repeat lactic acid per protocol. 5. Possible acute UTI-UA with 3+ bacteria, greater than 100 WBC, positive nitrite. Repeat with straight cath. If UA remains remarkable, will begin Rocephin pending culture. 6. Morbid obesity-patient was scheduled for a gastric sleeve on Thursday at [facility]. 7. Depression/anxiety-on duloxetine, lorazepam. 8. KATIA-continue home PAP regimen. DVT prophylaxis-Heparin subcu This patient was seen by JADE Cadena under the supervision of Dr. Aden. Documented by User: Dr. Heriberto Aden, DO 06/07/21 18:47 HPI - General General Date of Admission: 06/07/21 [facility] Medical History (Updated 06/07/21 @ 16:57 by Alexandra Espinal) Anxiety CPAP (continuous positive airway pressure) dependence Hypertension Kidney stones Non-smoker Osteoarthritis Osteomyelitis Sleep apnea Home Medications gabapentin 600 mg PO BID 02/10/15 [History Last Taken 06/07/21] albuterol sulfate [Ventolin Hfa (SP)] 1 - 2 puff INHALATION Q4H PRN PRN 12/24/16 [History Last Taken 06/06/21] gabapentin 900 mg PO QHS 03/25/17 [History Last Taken 06/06/21] amlodipine 5 mg PO DAILY 06/07/21 [History Last Taken 06/06/21] chlorthalidone 25 mg PO DAILY 06/07/21 [History Last Taken 06/06/21] dicyclomine 20 mg PO TID 06/07/21 [History Last Taken 06/06/21] duloxetine 30 mg PO QHS 06/07/21 [History Last Taken 06/06/21] fluticasone furoate-vilanterol [Breo Ellipta] 1 inh INHALATION DAILY 06/07/21 [History Last Taken 06/07/21] lisinopril 40 mg PO DAILY 06/07/21 [History Last Taken 06/06/21] lorazepam 1 mg PO BID PRN PRN 06/07/21 [History Last Taken 2 Days Ago ~06/05/21] montelukast [Singulair] 10 mg PO DAILY 06/07/21 [History Last Taken 06/06/21] nortriptyline 25 mg PO QHS 06/07/21 [History Last Taken 06/06/21] Allergy/AdvReac Type Severity Reaction Status Date / Time Iodinated Contrast Media AdvReac Swelling Verified 06/07/21 10:48 [CONTRASTS] SEASONAL ALLERGIES AdvReac Other Uncoded 06/07/21 10:48 Family History Father Heart disease Diabetes Mother Hypertension Surgical History (Updated 06/07/21 @ 17:01 by Devi Mondragon SPOOL SALVAGER, S[employer]OL SALVAGER-C) H/O knee surgery History of carpal tunnel release of both wrists History of rhinoplasty History of tonsillectomy and adenoidectomy Social History Smoking Status: Former smoker alcohol intake: current alcohol intake frequency: holidays/special occasions only substance use type: does not use Results Lab / Micro Data Result Diagrams: 06/07/21 11:34 06/07/21 11:34 Charges/Coding Addendum Addendum: Patient was seen and examined today independently of Devi Mondragon, she was seen in the emergency room at [facility] after being directed to come here for evaluation of low blood pressure. Patient has been feeling tired and weak over the last couple of weeks, she is due to undergo bariatric surgery this Thursday and has been on a liquid diet for the past 2 weeks. It was noted on a preop evaluation today that her blood pressure was low-she states the top number was in the 60s. On examination she appeared in good health and spirits, she does not appear to be in any distress. Vital signs as documented. Skin warm and dry and without overt rashes. Neck without JVD, thyroid appears normal, trachea is midline, neck is supple. Lungs clear, normal air movement was noted. Heart exam notable for regular rhythm, normal sounds and absence of murmurs, rubs or gallops. Abdomen unremarkable and without evidence of organomegaly, masses, or abdominal aortic enlargement, bowel sounds are present in all 4 quadrants, no abdominal tenderness was noted, patient is morbidly obese. Extremities nonedematous, no cyanosis was noted, no clubbing was noted. Neuro: Cranial nerves II through XII are grossly intact, no focal motor deficits were noted, sensation to light touch and pinprick is intact, motor exam 5/5 throughout. Psych: Patient is alert and oriented x3, she does not appear anxious or depressed, she does not appear agitated. Patient's labs were abnormal showing a creatinine of 2.97, BUN was elevated at 73, sodium was 128 and chloride was 92. Patient takes diuretics for her hypertension, all her hypertension medicines will be held at this time, patient will be given IV fluids and her labs will be monitored. I do not believe we need to do any imaging studies on her kidneys at this time unless her creatinine does not improve with administration of fluids. Patient's UA did show evidence of a urinary tract infection so I will place her on Keflex 500 mg twice daily. I have reviewed Devi Mondragon's history and physical including her medical assessment and plan of care and endorse it. Visit Charges Inpatient E&M: 24979 Init Hosp L3
[2021-06-07 16:18] LABS: Lactic Acid 1.4 mmol/L (0.4-1.9)
--- NOTE | 2021-06-07 17:12 | PCS.PANDOC ---
PANDEMIC DOCUMENTATION INITIATED: Date: 05/27/2021 Time: 190
[2021-06-07] MEDS: Gabapentin 300 MG Capsule 600 MG PO (17:33)
[2021-06-07 18:56] LABS: Mucous, Urine 0 SEEN /hpf (<or=2+); Red Blood Cells-Urine 0 SEEN /hpf (0-5)
[2021-06-07 18:57] LABS: Color, Urine Yellow (Yellow); Glucose, Dipstick Normal (Normal); Ketone-Dipstick Negative (Negative); Leukocyte Esterase-Dipstick 100 /ul (Negative); Nitrite-Dipstick Negative (Negative); Occult Blood-Urine 25 /ul (Negative); Protein-Dipstick 15 mg/dl (Negative); Urine Bilirubin Dipstick Negative (Negative); Urine Clarity Clear (Clear); Urine Urobilinogen Normal (Normal)
[2021-06-07 19:03] LABS: White Blood Cells 0-5 SEEN /hpf (0-5)
[2021-06-07 19:04] LABS: Bacteria 1+ /hpf (None Seen); Squamous Epithelial Cells - UA 0-5 SEEN /hpf (5-10)
[2021-06-07] MEDS: 0.9% Normal Saline 1,000 ML 150 ML IV (20:16)
[2021-06-07] MEDS: Dicyclomine 10 MG Capsule 20 MG PO (22:12)
[2021-06-07] MEDS: DULoxetine Hcl 30 MG Capsule PO (22:12)
[2021-06-07] MEDS: Loratadine 10 MG Tablet PO (22:12)
[2021-06-07] MEDS: Cephalexin 500 MG Capsule PO (22:13)
[2021-06-07] MEDS: Heparin Injection (Vial) 5,000 UNIT/ML VIAL 5000 UNIT SC (22:13)
[2021-06-07] MEDS: Gabapentin 300 MG Capsule 900 MG PO (22:14)
[2021-06-07] MEDS: Nortriptyline 25 MG Capsule PO (22:14)
[2021-06-08] VITALS (8 sets, daily range): BP systolic 100–121; BP diastolic 43–70; PULSE 64–79; RESP 12–18; TEMP 36.4–36.9; O2SAT 98–100
[2021-06-08] MEDS: 0.9% Normal Saline 1,000 ML 150 ML IV ×4 (02:52→23:36)
[2021-06-08] MEDS: Dicyclomine 10 MG Capsule 20 MG PO ×3 (05:41→20:58)
[2021-06-08] MEDS: Acetaminophen 325 MG Tablet 650 MG PO ×2 (05:41→23:37)
[2021-06-08 07:02] LABS: Anion Gap 10 (5-15); BUN 61 mg/dL (7-18); BUN/Creat Ratio 33.2 RATIO (10-20); Calcium,Total 10.2 mg/dL (8.5-10.1); Chloride 103 mmol/L (98-107); Creatinine, Serum 1.84 mg/dL (0.55-1.02); EST Glomerular Filtration Rate 30 mL/min (>60); Est Glom Filt Rate - Afr Amer 36 mL/min (>60); Estimated Creatinine Clearance 29.26 ml/min; Glucose 113 mg/dL (74-106); Potassium 3.9 mmol/L (3.5-5.1); Sodium Level 136 mmol/L (136-145)
[2021-06-08] MEDS: Gabapentin 300 MG Capsule 600 MG PO ×2 (07:42→16:50)
[2021-06-08] MEDS: Cephalexin 500 MG Capsule PO ×2 (07:43→20:57)
[2021-06-08] MEDS: Heparin Injection (Vial) 5,000 UNIT/ML VIAL 5000 UNIT SC ×2 (09:41→20:57)
--- NOTE | 2021-06-08 12:04 | PN.HOSP_ITS ---
Documented by User: Devi Mondragon NP, PARENT PARTNER-C 06/08/21 12:09 Subjective Subjective Patient seen and examined. States she feels improved. Denies further significant lightheadedness. Creatinine and blood pressure improving. Objective Data Objective Data Vital Signs: Vital Signs Temp Pulse Resp BP Pulse Ox 98.3 F 64 12 102/64 98 06/08/21 07:57 06/08/21 08:29 06/08/21 07:57 06/08/21 07:57 06/08/21 07:57 Oxygen Flow Rate (L/min) 2 Oxygen Delivery Method Room Air Weight: 365 lb 11.95 oz Body Mass Index (BMI) 60.8 Intake & Output: Intake and Output for Last 24 Hours 06/06/21 06/07/21 06/08/21 23:59 23:59 23:59 Intake Total 3706.2 / 3706.2 2470.0 / 2470.0 Output Total 175 / 175 Balance 3706.2 / 3706.2 2295.0 / 2295.0 Lab / Micro Data Result Diagrams: 06/07/21 11:34 06/08/21 05:40 Labs: Laboratory Results - last 24 hr 06/07/21 11:34: Sodium 128 L, Potassium 4.0, Chloride 92 L, Carbon Dioxide 27.0, Anion Gap 9, BUN 73 H, Creatinine 2.97 H, Estim Creat Clear Calc 18.13, Est GFR (MDRD) Af Amer 21 L, Est GFR (MDRD) Non-Af 17 L, BUN/Creatinine Ratio 24.6 H, Glucose 127 H, Calcium 11.5 H, Troponin I High Sens 9 06/07/21 11:34: Lactic Acid 2.1 H* 06/07/21 13:31: Urine Color Yellow, Urine Clarity Sl. Cloudy, Urine pH 5.0, Ur Specific Zebulon 1.010, Urine Protein 30 H, Urine Glucose (UA) Normal, Urine Ketones Negative, Urine Occult Blood 25 H, Urine Nitrite Positive H, Urine Bilirubin Negative, Urine Urobilinogen Normal, Ur Leukocyte Esterase 500 H, Urine RBC 5-10 SEEN, Urine WBC >100 SEEN, Ur Squamous Epith Cells 50-100 SEEN, Urine Bacteria 3+, Urine Mucus 0 SEEN 06/07/21 15:50: Lactic Acid 1.4 06/07/21 18:17: Urine Color Yellow, Urine Clarity Clear, Urine pH 6.0, Ur Specific Zebulon 1.010, Urine Protein 15 H, Urine Glucose (UA) Normal, Urine Ketones Negative, Urine Occult Blood 25 H, Urine Nitrite Negative, Urine Bilirubin Negative, Urine Urobilinogen Normal, Ur Leukocyte Esterase 100 H, Urine RBC 0 SEEN, Urine WBC 0-5 SEEN, Ur Squamous Epith Cells 0-5 SEEN, Urine Bacteria 1+, Urine Mucus 0 SEEN 06/08/21 05:40: Sodium 136, Potassium 3.9, Chloride 103, Carbon Dioxide 23.0, Anion Gap 10, BUN 61 H, Creatinine 1.84 H, Estim Creat Clear Calc 29.26, Est GFR (MDRD) Af Amer 36 L, Est GFR (MDRD) Non-Af 30 L, BUN/Creatinine Ratio 33.2 H, Glucose 113 H, Calcium 10.2 H Micro: Microbiology 06/07/21 17:30 Nasal Secretion SARS-CoV-2 Antigen (Rapid) - Final Rhythm Strip Rhythm Strip: Sinus Rhythm Rate: 78 Ectopy: None Physical Exam Const alert, oriented x3 and no apparent distress Orientation / Consciousness: awake, oriented to person, oriented to place and oriented to time HEENT normocephalic and moist oral mucous membranes Eyes PERRL, EOMs intact bilaterally and conjunctivae normal Neck no lymphadenopathy Resp normal respiratory effort and clear to auscultation bilaterally Cardio regular rate, regular rhythm and no murmurs Peripheral Pulses: pulses 2+ throughout GI normal to inspection, nondistended, normoactive bowel sounds, non-tender and non-distended Extremity normal to inspection Skin no rashes or lesions noted Lesions: no lesions Rashes: no rashes Trauma: no lacerations or abrasions Neuro CN's II-XII intact bilaterally, no focal motor deficits, no sensory deficits noted and deep tendon reflexes 2+ bilaterally Psych mental status grossly normal and affect normal Assessment & Plan Assessment/Plan (1) Acute kidney injury: (2) Acute hypotension: PLAN: 1. Acute kidney injury-IV fluids, trend BMP. Improving. Patient has been on liquid diet in preparation for upcoming surgery. Hold diuretic regimen. 2. Hypotension-suspect secondary to #1 combined with home antihypertensive regimen. Hold BP regimen. IV fluids as noted above. Blood pressure improving. 3. Hypovolemic hyponatremia-IV fluids as noted above. Resolved. 4. Lactic acidosis-suspect secondary to dehydration. IV fluids. Repeat lactic acid normal. 5. UTI ruled out-initial clean-catch UA with 3+ bacteria, greater than 100 WBC, positive nitrite. Suspect contamination. Repeat UA with negative nitrite, 1+ bacteria and 0-5 WBC. Patient is asymptomatic. No fever, no white count 6. Morbid obesity-patient was scheduled for a gastric sleeve on Thursday at [facility]. 7. Depression/anxiety-on duloxetine, lorazepam. 8. KATIA-continue home PAP regimen. DVT prophylaxis-Heparin subcu Discharge plan: Anticipate discharge 06/09/2021 if continued improvement. This patient was seen by JADE Cadena under the supervision of Dr. You. Documented by User: Dr. Marilyn You MD 06/08/21 17:25 Objective Data Lab / Micro Data Result Diagrams: 06/07/21 11:34 06/08/21 05:40 Charges/Coding Addendum Addendum: Patient seen by Devi HANSEN under my supervision Patient seen and examined. She had no complaints this morning and felt much better. She was admitted with a complaint of low blood pressure and lightheadedness as well as near syncope. She has been hydrated with IV fluids and review of systems otherwise negative. O/E: Const alert, oriented x3 and no apparent distress, super morbid obesity Orientation / Consciousness: awake, oriented to person, oriented to place and oriented to time HEENT normocephalic and moist oral mucous membranes Eyes PERRL, EOMs intact bilaterally and conjunctivae normal Neck no lymphadenopathy Resp normal respiratory effort and clear to auscultation bilaterally Cardio regular rate, regular rhythm and no murmurs Peripheral Pulses: pulses 2+ throughout GI normal to inspection, nondistended, normoactive bowel sounds, non-tender and non-distended Extremity normal to inspection Skin no rashes or lesions noted Lesions: no lesions Rashes: no rashes Trauma: no lacerations or abrasions Neuro CN's II-XII intact bilaterally, no focal motor deficits, no sensory deficits noted and deep tendon reflexes 2+ bilaterally Psych mental status grossly normal and affect normal Plan is continue gentle hydration with IV fluids. Diuretics on hold. This is thought to likely be due to decreased oral intake as she had been on just a l iquid diet in preparation for bariatric surgery next week. Bariatric surgery now on hold. Patient will discuss with her nurse at the main campus. BP medications also on hold. Continue gentle hydration with IV fluids. Patient had asymptomatic bacteriuria with urinalysis showing 3+ bacteria. However repeat UA showed only 1+ bacteria. She is asymptomatic so we will monitor. Creatinine is trended down to 1.84 from 2.97 with hydration. Calcium was also elevated and this has trended down with hydration and is thought to likely be due to severe dehydration. Rest as per JADE Cadena's notes which I have reviewed and endorsed. Visit Charges Inpatient E&M: 34207 Subs Hosp L3
--- NOTE | 2021-06-08 12:05 | RAD_ITS ---
STUDY: X-RAY - LEFT KNEE REASON FOR EXAM: Female, 61 years old. Fall several days ago, anterior knee pain TECHNIQUE: 4 view(s) of the knee. COMPARISON: None. FINDINGS: Normal visualized distal femur. Normal visualized proximal tibia and fibula. Normal proximal tibiofibular articulation. There is moderate degenerative arthrosis of the medial femorotibial compartment with moderate joint space narrowing. There is mild degenerative arthrosis of the lateral femorotibial compartment. There is severe degenerative arthrosis of the patellofemoral articulation. There is no demonstrated joint effusion. The soft tissue structures are unremarkable. RAD/Knee 3 Views IMPRESSION: Tricompartmental osteoarthrosis. Electronically Signed: Ravinder Mederos MD ([place]) at 14:28 EDT , Service support ,
--- NOTE | 2021-06-08 12:55 | CASEMGMT ---
GIANCARLO OLIVAS assessment: Face to Face with patient for initial transition planning/care coordination assessment. GIANCARLO OLIVAS introduced self and role at [facility], pt voices understanding and consents to assessment. Pt is sitting up in bed in no distress. Pt is A/Ox4 and answers all questions appropriately. Care providers, pharmacy, and demographics verified/updated. Presentation: Pt was at physician office and sent to ED for hypotension Admitting dx: Hypotension, MIESHA, dehydration PCP: Andre Specialists: Pulm at [facility]; [facility] bariatric surgeon; Vanessa, onc; Carlos, soraya onc at [facility] main-pt states does not have active cancer Preferred Pharmacy: [facility] Insurance: MCR A/B/JOSH Prescription Benefit: Yes Living Will/HPOA: Pt states has LW/HPOA and pt provided to [facility] at this time. AD's copied and placed on chart. Pt states her son, Chetan Rodriguez, is HPOA. LNOK: Chetan Rodriguez, son/HPOA; Melissa Perez, sister Living Arrangements: Pt lives alone in [facility] [place] [facility] with no steps and states no concerns at home. Pt is independent with ADL's. Transportation: Pt states brother drives and states no transportation concerns. DME/HHC: Pt has the following DME: cane, walker, grab bars, and cpap thru [facility]. Pt states no need for any further DME. Pt states no hx of HHC or SNF. Pt states no concerns with going home at time of discharge. Pt is on disability. Pt states does not smoke cigarettes or drink ETOH. Pt states no further concerns/needs. CM to follow for any further discharge planning/needs. Advised pt to ask for CM if any further questions/concerns/needs arise, voices understanding. Pt Goal: Home Plan: [place] GIANCARLO OLIVAS
[2021-06-08] MEDS: Gabapentin 300 MG Capsule 900 MG PO (20:58)
[2021-06-08] MEDS: DULoxetine Hcl 30 MG Capsule PO (20:58)
[2021-06-08] MEDS: Nortriptyline 25 MG Capsule PO (20:59)
[2021-06-08] MEDS: Montelukast 10 MG Tablet PO (21:02)
[2021-06-09 02:40] VITALS: BP 117/80; PULSE 80; RESP 18; TEMP 36.1; O2SAT 99
[2021-06-09 03:00] VITALS: PULSE 80
[2021-06-09] MEDS: Dicyclomine 10 MG Capsule 20 MG PO (06:17)
[2021-06-09] MEDS: 0.9% Normal Saline 1,000 ML 150 ML IV (06:18)
[2021-06-09 07:00] VITALS: PULSE 78
[2021-06-09 07:41] LABS: Anion Gap 6 (5-15); BUN 44 mg/dL (7-18); BUN/Creat Ratio 31.2 RATIO (10-20); Calcium,Total 9.6 mg/dL (8.5-10.1); Chloride 106 mmol/L (98-107); Creatinine, Serum 1.41 mg/dL (0.55-1.02); EST Glomerular Filtration Rate 40 mL/min (>60); Est Glom Filt Rate - Afr Amer 49 mL/min (>60); Estimated Creatinine Clearance 38.18 ml/min; Glucose 101 mg/dL (74-106); Potassium 4.2 mmol/L (3.5-5.1); Sodium Level 137 mmol/L (136-145)
[2021-06-09 08:35] VITALS: BP 127/56; PULSE 72; RESP 18; TEMP 36.2; O2SAT 99
[2021-06-09] MEDS: Gabapentin 300 MG Capsule 600 MG PO (08:37)
[2021-06-09] MEDS: Heparin Injection (Vial) 5,000 UNIT/ML VIAL 5000 UNIT SC (08:37)
[2021-06-09] MEDS: Cephalexin 500 MG Capsule PO (08:37)
--- NOTE | 2021-06-09 10:37 | PCM.DC ---
Discharge Instructions Diet Discharge Diet: - (Continue previously prescribed diet per bariatric specialist) Activity Discharge Activity: Return to Normal Activity Dressing / Incision Call your doctor if you observe: Shortness of breath, Dizziness, Fainting spells and Chest pain Follow Up Care Test Results: Test results from this visit will be discussed in further detail at your follow-up appointment, if applicable. Discharge Plan Admission Admit Date/Time: 06/07/21 16:37 Primary Reason for Your Visit: Acute kidney injury, low blood pressure Attending Provider: Marilyn oYu Primary Care Provider: Adam Powell Instructions Additional Instructions / Restrictions: Your blood pressure medications were discontinued at this time. Recommend checking blood pressure twice daily, morning and night and documenting findings at home. If you become symptomatic with low blood pressure less than 90 systolically (top number), you will need to return to ER for evaluation. Discharge Orders/Prescriptions Prescriptions: Continued gabapentin 300 MG capsule 600 mg PO BID RF: 0 albuterol sulfate [Ventolin HFA] 1 INHALER inhaler 1 - 2 puff inhalation Q4H PRN PRN (Reason: Wheezing) RF: 0 gabapentin 300 MG capsule 900 mg PO QHS RF: 0 montelukast [Singulair] 10 mg Tablet 10 mg PO DAILY RF: 0 lorazepam 1 mg tablet 1 mg PO BID PRN PRN (Reason: Anxiety) RF: 0 Breo Ellipta 200-25 mcg/dose blister with device 1 inh INHALATION DAILY RF: 0 nortriptyline 25 mg capsule 25 mg PO QHS RF: 0 dicyclomine 20 mg tablet 20 mg PO TID RF: 0 duloxetine 30 mg capsule,delayed release(DR/EC) 30 mg PO QHS RF: 0 Discontinued amlodipine 5 mg tablet 5 mg PO DAILY RF: 0 lisinopril 40 mg tablet 40 mg PO DAILY RF: 0 chlorthalidone 25 mg tablet 25 mg PO DAILY RF: 0 Referrals / Follow Up: Adam Powell MD [Primary Care Provider] - 06/10/21 (As scheduled 06/10/21) Disposition Disposition (needs filled in before D/C Order can be placed): Home, Self Care
--- NOTE | 2021-06-09 10:44 | DS.PCM_ITS ---
Documented by User: Devi Mondragon NP, PERSONNEL TECHNICIAN-C 06/09/21 10:56 Providers Date of Admission: 06/07/21 Date of Discharge: 06/09/21 Primary Care Physician: Dr. Adam Powell MD Reason For Visit: HYPOTENSION, MIESHA, DEHYDRATION, HYONATREMIA Diagnosis Discharge Diagnosis (1) Acute kidney injury: Status: Acute Code(s): N17.9 - Acute kidney failure, unspecified (2) Acute hypotension: Status: Acute Code(s): I95.9 - Hypotension, unspecified Medications at Discharge Home Medications gabapentin 600 mg PO BID 02/10/15 albuterol sulfate [Ventolin HFA] 1 - 2 puff INHALATION Q4H PRN PRN 12/24/16 gabapentin 900 mg PO QHS 03/25/17 Breo Ellipta 1 inh INHALATION DAILY 06/07/21 dicyclomine 20 mg PO TID 06/07/21 duloxetine 30 mg PO QHS 06/07/21 lorazepam 1 mg PO BID PRN PRN 06/07/21 montelukast [Singulair] 10 mg PO DAILY 06/07/21 nortriptyline 25 mg PO QHS 06/07/21 Hospital Course Operations None Procedures None Summary of Care Provided Minutes Spent on Discharge: 35 Hospital Course: Patient is a 61-year-old female admitted 06/07/2021 due to symptomatic low blood pressure. 1. Acute kidney injury- Patient has been on liquid diet in preparation for upcoming surgery. Diuretic regimen held during admission and at discharge. Creatinine significantly improved from 2.97 on admission to 1.4 at discharge. Recommend repeat BMP in 3 to 5 days by primary care provider. Patient has follow-up on 06/10/2021 with primary care provider. 2. Hypotension-suspect secondary to #1 combined with home antihypertensive regimen. Continue to hold BP regimen at discharge. Blood pressure currently stable. Instructed patient to monitor blood pressure twice daily and document findings for PCP follow-up. Instructed patient if she has symptomatic hypotension, she will need to return to the emergency room. 3. Hypovolemic hyponatremia- Resolved. 4. Lactic acidosis-suspect secondary to dehydration. Repeat lactic acid normal. 5. UTI ruled out-initial clean-catch UA with 3+ bacteria, greater than 100 WBC, positive nitrite. Suspect contamination. Repeat UA with negative nitrite, 1+ bacteria and 0-5 WBC. Patient is asymptomatic. No fever, no white count. Treatment not indicated at this time. 6. Morbid obesity-patient was scheduled for a gastric sleeve on Thursday at [facility]. Follow-up with bariatric clinic at discharge for further recommendations. 7. Depression/anxiety-on duloxetine, lorazepam. 8. KATIA-continue home PAP regimen. Physical Exam Const alert, oriented x3 and no apparent distress Orientation / Consciousness: awake, oriented to person, oriented to place and oriented to time HEENT normocephalic and moist oral mucous membranes Eyes PERRL, EOMs intact bilaterally and conjunctivae normal Neck no lymphadenopathy Resp normal respiratory effort and clear to auscultation bilaterally Cardio regular rate, regular rhythm and no murmurs Peripheral Pulses: pulses 2+ throughout GI normal to inspection, nondistended, normoactive bowel sounds, non-tender and non-distended Extremity normal to inspection Skin no rashes or lesions noted Lesions: no lesions Rashes: no rashes Trauma: no lacerations or abrasions Neuro CN's II-XII intact bilaterally, no focal motor deficits, no sensory deficits noted and deep tendon reflexes 2+ bilaterally Psych mental status grossly normal and affect normal Patient seen and examined prior to discharge. Physical assessment as noted abo ve. Patient is stable for discharge with follow up recommendations as noted above. This patient was seen by JADE Cadena under the supervision of Dr. You. Weight / BMI Weight Weight: 365 lb 11.95 oz Body Mass Index (BMI) 60.8 ABG / Lab / Microbiology Data Result Diagrams: 06/07/21 11:34 06/09/21 06:00 Laboratory: Laboratory Results - last 24 hr 06/09/21 06:00: Sodium 137, Potassium 4.2, Chloride 106, Carbon Dioxide 25.0, Anion Gap 6, BUN 44 H, Creatinine 1.41 H, Estim Creat Clear Calc 38.18, Est GFR (MDRD) Af Amer 49 L, Est GFR (MDRD) Non-Af 40 L, BUN/Creatinine Ratio 31.2 H, Glucose 101, Calcium 9.6 Microbiology: Microbiology 06/07/21 17:30 Nasal Secretion SARS-CoV-2 Antigen (Rapid) - Final Radiography Diagnostic Testing: Radiology Impression Knee X-Ray 06/08/21 12:05 IMPRESSION: Tricompartmental osteoarthrosis. Electronically Signed: Ravinder Mederos MD ([place]) at 14:28 EDT , Service support , D/C Instructions Discharge Diet: - (Continue previously prescribed diet per bariatric specialist) Call your doctor if you observe: Shortness of breath, Dizziness, Fainting spells and Chest pain Meaningful Use Info Meaningful Use Diagnoses (Choose all that apply): None applicable Discharge Plan Admission Admit Date/Time: 06/07/21 16:37 Primary Reason for Your Visit: Acute kidney injury, low blood pressure Attending Provider: Marilyn You Primary Care Provider: Adam Powell Instructions Additional Instructions / Restrictions: Your blood pressure medications were discontinued at this time. Recommend checking blood pressure twice daily, morning and night and documenting findings at home. If you become symptomatic with low blood pressure less than 90 systolically (top number), you will need to return to ER for evaluation. Discharge Orders/Prescriptions Prescriptions: Continued gabapentin 300 MG capsule 600 mg PO BID RF: 0 albuterol sulfate [Ventolin HFA] 1 INHALER inhaler 1 - 2 puff inhalation Q4H PRN PRN (Reason: Wheezing) RF: 0 gabapentin 300 MG capsule 900 mg PO QHS RF: 0 montelukast [Singulair] 10 mg Tablet 10 mg PO DAILY RF: 0 lorazepam 1 mg tablet 1 mg PO BID PRN PRN (Reason: Anxiety) RF: 0 Breo Ellipta 200-25 mcg/dose blister with device 1 inh INHALATION DAILY RF: 0 nortriptyline 25 mg capsule 25 mg PO QHS RF: 0 dicyclomine 20 mg tablet 20 mg PO TID RF: 0 duloxetine 30 mg capsule,delayed release(DR/EC) 30 mg PO QHS RF: 0 Discontinued amlodipine 5 mg tablet 5 mg PO DAILY RF: 0 lisinopril 40 mg tablet 40 mg PO DAILY RF: 0 chlorthalidone 25 mg tablet 25 mg PO DAILY RF: 0 Referrals / Follow Up: Adam Powell MD [Primary Care Provider] - 06/10/21 (As scheduled 06/10/21) Disposition Disposition (needs filled in before D/C Order can be placed): Home, Self Care Documented by User: Dr. Marilyn You MD 06/09/21 16:47 Providers Date of Admission: 06/07/21 Reason For Visit: HYPOTENSION, MIESHA, DEHYDRATION, HYONATREMIA Medications at Discharge Home Medications gabapentin 600 mg PO BID 02/10/15 albuterol sulfate [Ventolin HFA] 1 - 2 puff INHALATION Q4H PRN PRN 12/24/16 gabapentin 900 mg PO QHS 03/25/17 Breo Ellipta 1 inh INHALATION DAILY 06/07/21 dicyclomine 20 mg PO TID 06/07/21 duloxetine 30 mg PO QHS 06/07/21 lorazepam 1 mg PO BID PRN PRN 06/07/21 montelukast [Singulair] 10 mg PO DAILY 06/07/21 nortriptyline 25 mg PO QHS 06/07/21 ABG / Lab / Microbiology Data Result Diagrams: 06/07/21 11:34 06/09/21 06:00 Discharge Plan Admission Admit Date/Time: 06/07/21 16:37 Primary Reason for Your Visit: Acute kidney injury, low blood pressure Attending Provider: Marilyn You Primary Care Provider: Adam Powell Instructions Additional Instructions / Restrictions: Your blood pressure medications were discontinued at this time. Recommend checking blood pressure twice daily, morning and night and documenting findings at home. If you become symptomatic with low blood pressure less than 90 systo lically (top number), you will need to return to ER for evaluation. Discharge Orders/Prescriptions Prescriptions: Continued gabapentin 300 MG capsule 600 mg PO BID RF: 0 albuterol sulfate [Ventolin HFA] 1 INHALER inhaler 1 - 2 puff inhalation Q4H PRN PRN (Reason: Wheezing) RF: 0 gabapentin 300 MG capsule 900 mg PO QHS RF: 0 montelukast [Singulair] 10 mg Tablet 10 mg PO DAILY RF: 0 lorazepam 1 mg tablet 1 mg PO BID PRN PRN (Reason: Anxiety) RF: 0 Breo Ellipta 200-25 mcg/dose blister with device 1 inh INHALATION DAILY RF: 0 nortriptyline 25 mg capsule 25 mg PO QHS RF: 0 dicyclomine 20 mg tablet 20 mg PO TID RF: 0 duloxetine 30 mg capsule,delayed release(DR/EC) 30 mg PO QHS RF: 0 Discontinued amlodipine 5 mg tablet 5 mg PO DAILY RF: 0 lisinopril 40 mg tablet 40 mg PO DAILY RF: 0 chlorthalidone 25 mg tablet 25 mg PO DAILY RF: 0 Referrals / Follow Up: Adam Powell MD [Primary Care Provider] - 06/10/21 (As scheduled 06/10/21) Disposition Disposition (needs filled in before D/C Order can be placed): Home, Self Care Charges/Coding Addendum Addendum: Patient seen by Devi HANSEN under my supervision Patient is a 61-year-old female with past medical history as outlined was admitted through the ED with a complaint of low blood pressure which have been going on for about 3 days prior to admission with associated lightheadedness and near syncope. Patient had been scheduled for gastric sleeve surgery in a few days and went for her preanesthesia testing on the day of admission when she felt lightheaded and weak and her blood pressure was very low so she was sent into the ED. She has says she had been on a liquid diet in preparation for her gastric sleeve surgery. She had no other complaints and review of symptoms otherwise negative. On admission, she was found to have MIESHA with creatinine of 2.97. Her diuretics were held and patient was hydrated with IV fluids. Urinal ysis showed evidence of UTI but she had no symptoms and repeat urinalysis showed only 1+ bacteria.. Nephrotoxic medications were held. Patient's hypotension resolved she felt much better. Creatinine also improved and trended down it was 1.8 on day of discharge. Patient said her surgery was canceled so she was put back on her regular diet. Patient remained stable and was discharged on 06/09/2021. She was counseled to remain well-hydrated. Her diuretics were held at discharge and she is to follow-up with her primary care doctor in about 3 to 5 days for repeat BMP. She is to continue monitoring her blood pressure at home. Patient seen and examined prior to discharge. She had no complaints and felt well. Review of symptoms otherwise negative. Labs and vitals reviewed. Home medication reviewed and reconciled. O/E: Const alert, oriented x3 and no apparent distress Orientation / Consciousness: awake, oriented to person, oriented to place and oriented to time HEENT normocephalic and moist oral mucous membranes Eyes PERRL, EOMs intact bilaterally and conjunctivae normal Neck no lymphadenopathy Resp normal respiratory effort and clear to auscultation bilaterally Cardio regular rate, regular rhythm and no murmurs Peripheral Pulses: pulses 2+ throughout GI normal to inspection, nondistended, normoactive bowel sounds, non-tender and non-distended Extremity normal to inspection Skin no rashes or lesions noted Lesions: no lesions Rashes: no rashes Trauma: no lacerations or abrasions Neuro CN's II-XII intact bilaterally, no focal motor deficits, no sensory deficits noted and deep tendon reflexes 2+ bilaterally Psych mental status grossly normal and affect normal Plan is for discharge home today. Rest as per Devi Mondragon PERSONNEL TECHNICIAN-C's note, which I have reviewed and endorsed. Visit Charges Inpatient E&M: 09310 Disch Hosp
[2021-06-09 11:00] VITALS: PULSE 78
[2021-06-09 11:13] VITALS: BP 127/56; PULSE 72; RESP 18; TEMP 36.2; O2SAT 99
--- NOTE | 2021-06-10 14:49 | CASEMGMT ---
GIANCARLO OLIVAS Discharge Follow-Up Phone Call. Lace: 10 Strata: 3 Discharge Date: 06/09/21 Adm Dx: MIESHA Attempted discharge f/u phone call. No answer. Recording w/pt's name identified came on. left for return call to RN DEISY if there are any questions or concerns. Phone number provided. Yang HERNANDEZN GIANCARLO CM
== END 2021-06-09 12:25 | disposition home or self-care (01) | DRG 683 ==
LOC: ED 13:41 → PCU 16:13
PROVIDERS: Nurse Practitioner Family; Admitting Provider Internal Medicine; Emergency Provider Emergency Medicine; PCP Internal Medicine; Visit Provider Student in an Organized Health Care Education/Training Program
DX: N17.9 Acute kidney failure, unspecified (principal); Z68.44 Body mass index [BMI] 60.0-69.9, adult; E87.1 Hypo-osmolality and hyponatremia; I95.9 Hypotension, unspecified; E86.0 Dehydration; E11.9 Type 2 diabetes mellitus without complications; I10 Essential (primary) hypertension; E66.01 Morbid (severe) obesity due to excess calories; E86.1 Hypovolemia; F32.9 Major depressive disorder, single episode, unspecified; F41.9 Anxiety disorder, unspecified; G47.33 Obstructive sleep apnea (adult) (pediatric); M19.90 Unspecified osteoarthritis, unspecified site; Z87.442 Personal history of urinary calculi; Z85.42 Personal history of malignant neoplasm of other parts of uterus; Z79.899 Other long term (current) drug therapy; Z87.891 Personal history of nicotine dependence
CPT/HCPCS: 36415; 71045; 73562; 80048; 81001; 83605; 84484; 85025; 87426; 93005; 99285; J7030; A4216